=== PATIENT | male | born 1950 | race Caucasian/White ===

== ENCOUNTER 2017-07-08 00:07 | Inpatient (IN) | payer MEDICARE, MEDICAID ==
[~2017-07-08] VITALS: Ht 172.7 cm; Wt 77.0 kg
[~2017-07-08 00:07] MED LIST: CELE-193 PO; CLA10T PO; CLOP75TA35 PO; CYCL-394 PO; ESCI5TAB PO; FENO145T38 PO; GABA-532 PO; HYDR12.522 PO; ONDA4TAB6 PO; POTA10TA19 PO
[2017-07-08] MEDS ORDERED: normal saline 1000ML IV soln IVB ONE (00:20)
[2017-07-08] MEDS ORDERED: morphine 4 MG/ML inj SYRINge IV ONE (00:20)
[2017-07-08] MEDS ORDERED: ondansetron/PF 4mg/2ml inj IV ONE (00:20)
[2017-07-08] MEDS ORDERED: morphine 2 MG/ML inj. syringe IV ONE (00:25)
[2017-07-08 00:37] LABS: BASOPHILS % (AUTO) 0.1 % (0-1); EOSINOPHILS # (AUTO) 0.4 X10'3 (0-0.9); EOSINOPHILS % (AUTO) 2.5 % (0-6); HEMATOCRIT 37.9 % (42.0-52.0); HEMOGLOBIN 13.2 g/dl (14.0-17.9); LYMPHOCYTES # (AUTO) 1.6 X10'3 (1.1-4.8); LYMPHOCYTES % (AUTO) 9.5 % (21-51); MEAN CORPUSCULAR HEMOGLOBIN 31.5 PG (27.0-31.0); MEAN CORPUSCULAR HGB CONC 34.7 % (33.0-36.5); MEAN CORPUSCULAR VOLUME 90.6 FL (78-98); MEAN PLATELET VOLUME 8.7 FL (7.4-10.4); MONOCYTES # (AUTO) 0.2 X10'3 (0-0.9); NEUTROPHILS # (AUTO) 14.5 X10'3 (1.8-7.7); NEUTROPHILS % (AUTO) 86.9 % (42-75); PLATELET COUNT 296 X10'3 (140-440); RED BLOOD COUNT 4.18 X10'6 (4.70-6.10); RED CELL DISTRIBUTION WIDTH 15.3 % (11.5-14.5); WHITE BLOOD COUNT 16.6 X10'3 (4.5-11.0)
[2017-07-08 00:53] LABS: ALANINE AMINOTRANSFERASE 33 U/L (12-78); ALBUMIN 3.7 G/DL (3.4-5.0); ALBUMIN/GLOBULIN RATIO 0.8 (1.1-1.5); ALKALINE PHOSPHATASE 58 IU/L (46-116); ANION GAP 9 (8-16); ASPARTATE AMINO TRANSFERASE 22 U/L (10-37); BILIRUBIN,TOTAL 0.3 MG/DL (0.1-1.0); BLOOD UREA NITROGEN 21 MG/DL (7-18); BUN/CREATININE RATIO 18.1 (5.4-32.0); CALCIUM 9.1 MG/DL (8.5-10.1); CHLORIDE 102 MMOL/L (99-107); CREATININE 1.16 MG/DL (0.60-1.10); GLUCOSE 96 MG/DL (70-104); LIPASE 111 U/L (73-393); POTASSIUM 4.1 MMOL/L (3.5-5.1); SODIUM 140 MMOL/L (135-145); TOTAL CARBON DIOXIDE 29.3 MMOL/L (24-32); TOTAL PROTEIN 8.2 G/DL (6.4-8.2); eGFR 63 ML/MIN
[2017-07-08 01:32] LABS: PARTIAL THROMBOPLASTIN TIME 26 SECONDS (22-32); PROTHROMBIN TIME 10.7 SECONDS (9.0-12.0)
[2017-07-08 01:42] LABS: CLARITY,URINE CLEAR (Clear); COLOR,URINE YELLOW (Yellow); GLUCOSE, URINE NEGATIVE (Neg); KETONES,URINE NEGATIVE (Neg); LEUKOCYTE ESTERASE ,URINE NEGATIVE (Neg); NITRITES, URINE NEGATIVE (Neg); OCCULT BLOOD,URINE TRACE-INTACT (Neg); PROTEIN,URINE NEGATIVE (Neg); UROBILINOGEN,URINE 0.2 E.U/dL (0.2-1.0)
[2017-07-08] MEDS ORDERED: piperacillin/tazo 3.375gm/50ml 50 ML IV ONE (01:45)
[2017-07-08 01:47] LABS: UA COLLECTION TYPE CLN CATCH MIDSTREAM
[2017-07-08 01:48] LABS: BACTERIA,URINE NONE SEEN /HPF (Neg); RBC,URINE 0-2 /HPF (0-2); SQUAMOUS EPITHELIAL CELL,UR FEW /LPF (FEW); WBC,URINE NONE SEEN /HPF (0-4)
[2017-07-08] MEDS ORDERED: CLOP75TA15 PO (02:28)
[2017-07-08] MEDS ORDERED: OXYC-150 PO (02:28)
[2017-07-08] MEDS ORDERED: POTA10TA19 PO (02:28)
[2017-07-08] MEDS ORDERED: FENO145T38 PO (02:28)
[2017-07-08] MEDS ORDERED: MELA3TAB PO (02:28)
[2017-07-08] MEDS ORDERED: ATOR10TA87 PO (02:28)
[2017-07-08] MEDS ORDERED: ONDA4TAB6 PO (02:28)
[2017-07-08] MEDS ORDERED: BACL10TA PO (02:28)
[2017-07-08] MEDS ORDERED: ROPI1TAB2 PO (02:28)
[2017-07-08] MEDS ORDERED: CELE-193 PO (02:28)
[2017-07-08] MEDS ORDERED: LOSA25TA96 PO (02:28)
[2017-07-08] MEDS ORDERED: DOCU-28 PO (02:28)
[2017-07-08] MEDS ORDERED: GABA-532 PO (02:28)
[2017-07-08] MEDS ORDERED: potassium Cl 20 mEq SR tablet PO PRN ×2 (02:45)
[2017-07-08] MEDS ORDERED: magnesium 2GM in 50ml NS 50 ML IV PRN (02:45)
[2017-07-08] MEDS ORDERED: mag hydrox/Alum hydrox/simeth 30ml oral suspension PO PRN (02:45)
[2017-07-08] MEDS ORDERED: acetaminophen 325mg tablet PO PRN (02:45)
[2017-07-08] MEDS ORDERED: magnesium hydroxide 30ml (MOM) UD suspension PO PRN (02:45)
[2017-07-08] MEDS ORDERED: potassium Cl 40MEQ/NS 500ml 500 ML IV PRN ×2 (02:45)
[2017-07-08] MEDS ORDERED: albuterol 2.5 MG/3 ML nebule NEB PRN (02:45)
[2017-07-08] MEDS ORDERED: ipratropium/albuterol 3ml nebule NEB PRN (02:45)
[2017-07-08] MEDS ORDERED: HYDROmorphone inj. 0.5 MG/0.5 ML DISP.SYRIN IV PRN ×2 (02:45)
[2017-07-08] MEDS ORDERED: magnesium 4gm in 100ml NS 100 ML IV PRN (02:45)
[2017-07-08] MEDS: normal saline 1000ml 1,000 ML IV SCH ×2 (02:45→15:54)
[2017-07-08] MEDS ORDERED: magnesium Cl slow-release 64mg tablet PO PRN (02:45)
[2017-07-08] MEDS: metroNIDAZOLE-Flagyl 500mg/NS 100 ML IV SCH ×2 (03:30→08:00)
[2017-07-08] MEDS: piperacillin/tazo 4.5gm/100ml 100 ML IV SCH ×2 (08:00→16:48)
[2017-07-08] MEDS: gabapentin 300mg capsule PO SCH ×3 (08:00→20:02)
[2017-07-08] MEDS: K and/or MAG REPLACEMENT MC SCH (08:00)
[2017-07-08] MEDS: atorvastatin 10mg tablet PO SCH (08:00)
[2017-07-08] MEDS: losartan 25mg tablet PO SCH (08:00)
[2017-07-08] MEDS: potassium chloride 10mEq ER tablet PO SCH (08:00)
[2017-07-08] MEDS: clopidogrel 75mg tablet PO SCH (08:00)
[2017-07-08] MEDS: morphine 2 MG/ML inj. syringe IV PRN ×2 (11:00→14:34)
[2017-07-08] MEDS: ondansetron/PF 4mg/2ml inj IV PRN (14:34)
[2017-07-08] MEDS ORDERED: pantoprazole 40 MG vial IV ONE (16:25)
[2017-07-08] MEDS: lactobacillus rhamnosus 10,000 MMU CELLS/CAPSULE PO SCH (20:00)
[2017-07-08] MEDS: ROPINIRole 1mg tablet PO SCH (20:03)
[2017-07-09 02:00] VITALS: BP 161/92
[2017-07-09] MEDS: normal saline 1000ml 1,000 ML IV SCH (02:18)
[2017-07-09] MEDS: piperacillin/tazo 4.5gm/100ml 100 ML IV SCH ×3 (02:18→17:43)
[2017-07-09] MEDS: morphine 2 MG/ML inj. syringe IV PRN ×4 (02:22→19:58)
[2017-07-09] MEDS: ondansetron/PF 4mg/2ml inj IV PRN (02:40)
[2017-07-09 05:56] LABS: BASOPHILS % (AUTO) 0 % (0-1); EOSINOPHILS % (AUTO) 0 % (0-6); HEMATOCRIT 36.3 % (42.0-52.0); HEMOGLOBIN 12.5 g/dl (14.0-17.9); LYMPHOCYTES # (AUTO) 0.6 X10'3 (1.1-4.8); LYMPHOCYTES % (AUTO) 3.1 % (21-51); MEAN CORPUSCULAR HEMOGLOBIN 31.6 PG (27.0-31.0); MEAN CORPUSCULAR HGB CONC 34.6 % (33.0-36.5); MEAN CORPUSCULAR VOLUME 91.4 FL (78-98); MEAN PLATELET VOLUME 9.1 FL (7.4-10.4); MONOCYTES # (AUTO) 0.6 X10'3 (0-0.9); MONOCYTES % (AUTO) 3.3 % (2-12); NEUTROPHILS # (AUTO) 17.6 X10'3 (1.8-7.7); NEUTROPHILS % (AUTO) 93.6 % (42-75); PLATELET COUNT 249 X10'3 (140-440); RED BLOOD COUNT 3.97 X10'6 (4.70-6.10); RED CELL DISTRIBUTION WIDTH 15.1 % (11.5-14.5); WHITE BLOOD COUNT 18.8 X10'3 (4.5-11.0)
[2017-07-09 06:00] VITALS: BP 128/83
[2017-07-09 06:21] LABS: ALANINE AMINOTRANSFERASE 28 U/L (12-78); ALBUMIN/GLOBULIN RATIO 0.6 (1.1-1.5); ALKALINE PHOSPHATASE 51 IU/L (46-116); ANION GAP 13 (8-16); ASPARTATE AMINO TRANSFERASE 25 U/L (10-37); BILIRUBIN,TOTAL 0.5 MG/DL (0.1-1.0); BLOOD UREA NITROGEN 19 MG/DL (7-18); BUN/CREATININE RATIO 18.8 (5.4-32.0); CALCIUM 8.8 MG/DL (8.5-10.1); CHLORIDE 104 MMOL/L (99-107); CREATININE 1.01 MG/DL (0.60-1.10); GLUCOSE 133 MG/DL (70-104); MAGNESIUM 1.8 MG/DL (1.5-2.4); POTASSIUM 3.5 MMOL/L (3.5-5.1); SODIUM 141 MMOL/L (135-145); TOTAL CARBON DIOXIDE 24.4 MMOL/L (24-32); TOTAL PROTEIN 7.8 G/DL (6.4-8.2); eGFR 73 ML/MIN
[2017-07-09] MEDS: clopidogrel 75mg tablet PO SCH (08:00)
[2017-07-09] MEDS: K and/or MAG REPLACEMENT MC SCH (08:00)
[2017-07-09] MEDS: losartan 25mg tablet PO SCH (08:26)
[2017-07-09] MEDS: lactobacillus rhamnosus 10,000 MMU CELLS/CAPSULE PO SCH ×2 (08:26→19:59)
[2017-07-09] MEDS: atorvastatin 10mg tablet PO SCH (08:26)
[2017-07-09] MEDS: gabapentin 300mg capsule PO SCH ×3 (08:26→19:59)
[2017-07-09] MEDS: potassium chloride 10mEq ER tablet PO SCH (08:27)
[2017-07-09 11:00] VITALS: BP 133/88
[2017-07-09 18:26] VITALS: BP 139/80
[2017-07-09] MEDS: ROPINIRole 1mg tablet PO SCH (19:59)
[2017-07-09 22:10] VITALS: BP 114/64
[2017-07-10] MEDS: piperacillin/tazo 4.5gm/100ml 100 ML IV SCH ×3 (00:02→16:39)
[2017-07-10] MEDS: normal saline 1000ml 1,000 ML IV SCH ×2 (00:05→22:00)
[2017-07-10] MEDS: morphine 2 MG/ML inj. syringe IV PRN ×3 (00:51→12:43)
[2017-07-10 06:00] VITALS: BP 151/88
[2017-07-10 06:03] LABS: BASOPHILS % (AUTO) 0.2 % (0-1); EOSINOPHILS % (AUTO) 0 % (0-6); HEMATOCRIT 33.8 % (42.0-52.0); HEMOGLOBIN 11.9 g/dl (14.0-17.9); LYMPHOCYTES # (AUTO) 0.7 X10'3 (1.1-4.8); LYMPHOCYTES % (AUTO) 4.4 % (21-51); MEAN CORPUSCULAR HEMOGLOBIN 31.3 PG (27.0-31.0); MEAN CORPUSCULAR HGB CONC 35.1 % (33.0-36.5); MEAN CORPUSCULAR VOLUME 89.2 FL (78-98); MEAN PLATELET VOLUME 8.9 FL (7.4-10.4); MONOCYTES # (AUTO) 0.5 X10'3 (0-0.9); MONOCYTES % (AUTO) 3.4 % (2-12); NEUTROPHILS # (AUTO) 14.7 X10'3 (1.8-7.7); PLATELET COUNT 259 X10'3 (140-440); RED BLOOD COUNT 3.78 X10'6 (4.70-6.10); RED CELL DISTRIBUTION WIDTH 14.9 % (11.5-14.5)
[2017-07-10 06:31] LABS: ALANINE AMINOTRANSFERASE 23 U/L (12-78); ALBUMIN 2.5 G/DL (3.4-5.0); ALBUMIN/GLOBULIN RATIO 0.5 (1.1-1.5); ALKALINE PHOSPHATASE 44 IU/L (46-116); ANION GAP 9 (8-16); ASPARTATE AMINO TRANSFERASE 16 U/L (10-37); BILIRUBIN,TOTAL 0.5 MG/DL (0.1-1.0); BLOOD UREA NITROGEN 31 MG/DL (7-18); BUN/CREATININE RATIO 24.8 (5.4-32.0); CALCIUM 8.7 MG/DL (8.5-10.1); CHLORIDE 110 MMOL/L (99-107); CREATININE 1.25 MG/DL (0.60-1.10); GLUCOSE 130 MG/DL (70-104); MAGNESIUM 2.2 MG/DL (1.5-2.4); POTASSIUM 3.6 MMOL/L (3.5-5.1); SODIUM 144 MMOL/L (135-145); TOTAL PROTEIN 7.1 G/DL (6.4-8.2); eGFR 57 ML/MIN
[2017-07-10] MEDS: K and/or MAG REPLACEMENT MC SCH (08:00)
[2017-07-10] MEDS: potassium chloride 10mEq ER tablet PO SCH (08:17)
[2017-07-10] MEDS: gabapentin 300mg capsule PO SCH ×3 (08:17→20:30)
[2017-07-10] MEDS: lactobacillus rhamnosus 10,000 MMU CELLS/CAPSULE PO SCH ×2 (08:17→20:30)
[2017-07-10] MEDS: losartan 25mg tablet PO SCH (08:17)
[2017-07-10] MEDS: clopidogrel 75mg tablet PO SCH (08:17)
[2017-07-10] MEDS: atorvastatin 10mg tablet PO SCH (08:17)
[2017-07-10 10:00] VITALS: BP 164/81
[2017-07-10] MEDS ORDERED: ondansetron/PF 4mg/2ml inj IV PRN (17:15)
[2017-07-10] MEDS: ondansetron/PF 4mg/2ml inj IV PRN (18:56)
[2017-07-10] MEDS: ROPINIRole 1mg tablet PO SCH (20:31)
[2017-07-10] MEDS ORDERED: MORPHINE 2MG in 2ml NS syringe IV PRN (20:35)
[2017-07-10 22:02] VITALS: BP 159/92
[2017-07-11] VITALS (8 sets, daily range): BP systolic 117–166; BP diastolic 59–90
[2017-07-11] MEDS: piperacillin/tazo 4.5gm/100ml 100 ML IV SCH ×2 (00:32→07:17)
[2017-07-11] MEDS: ondansetron/PF 4mg/2ml inj IV PRN ×2 (01:15→07:23)
[2017-07-11 06:48] LABS: BASOPHILS % (AUTO) 0 % (0-1); EOSINOPHILS # (AUTO) 0.1 X10'3 (0-0.9); EOSINOPHILS % (AUTO) 0.7 % (0-6); HEMATOCRIT 38.7 % (42.0-52.0); HEMOGLOBIN 13.2 g/dl (14.0-17.9); LYMPHOCYTES # (AUTO) 0.5 X10'3 (1.1-4.8); LYMPHOCYTES % (AUTO) 3.6 % (21-51); MEAN CORPUSCULAR HEMOGLOBIN 31.1 PG (27.0-31.0); MEAN CORPUSCULAR HGB CONC 34.1 % (33.0-36.5); MEAN CORPUSCULAR VOLUME 91.2 FL (78-98); MEAN PLATELET VOLUME 9.6 FL (7.4-10.4); MONOCYTES # (AUTO) 0.4 X10'3 (0-0.9); MONOCYTES % (AUTO) 2.5 % (2-12); NEUTROPHILS # (AUTO) 13.9 X10'3 (1.8-7.7); NEUTROPHILS % (AUTO) 93.2 % (42-75); PLATELET COUNT 298 X10'3 (140-440); RED BLOOD COUNT 4.25 X10'6 (4.70-6.10); RED CELL DISTRIBUTION WIDTH 15.3 % (11.5-14.5); WHITE BLOOD COUNT 14.9 X10'3 (4.5-11.0)
[2017-07-11 07:11] LABS: ALANINE AMINOTRANSFERASE 22 U/L (12-78); ALBUMIN 2.7 G/DL (3.4-5.0); ALBUMIN/GLOBULIN RATIO 0.5 (1.1-1.5); ALKALINE PHOSPHATASE 53 IU/L (46-116); ANION GAP 14 (8-16); ASPARTATE AMINO TRANSFERASE 22 U/L (10-37); BILIRUBIN,TOTAL 0.3 MG/DL (0.1-1.0); BLOOD UREA NITROGEN 36 MG/DL (7-18); BUN/CREATININE RATIO 29.5 (5.4-32.0); CALCIUM 9.4 MG/DL (8.5-10.1); CHLORIDE 110 MMOL/L (99-107); CREATININE 1.22 MG/DL (0.60-1.10); GLUCOSE 150 MG/DL (70-104); MAGNESIUM 2.3 MG/DL (1.5-2.4); SODIUM 149 MMOL/L (135-145); TOTAL CARBON DIOXIDE 24.7 MMOL/L (24-32); TOTAL PROTEIN 7.8 G/DL (6.4-8.2); eGFR 59 ML/MIN
[2017-07-11 07:16] LABS: POTASSIUM 2.9 MMOL/L (3.5-5.1)
[2017-07-11] MEDS: gabapentin 300mg capsule PO SCH ×3 (07:17→21:00)
[2017-07-11] MEDS: losartan 25mg tablet PO SCH (07:17)
[2017-07-11] MEDS: atorvastatin 10mg tablet PO SCH (07:17)
[2017-07-11] MEDS: clopidogrel 75mg tablet PO SCH (07:17)
[2017-07-11] MEDS: potassium chloride 10mEq ER tablet PO SCH (07:17)
[2017-07-11] MEDS: lactobacillus rhamnosus 10,000 MMU CELLS/CAPSULE PO SCH ×2 (07:17→20:00)
[2017-07-11] MEDS: K and/or MAG REPLACEMENT MC SCH ×2 (08:00→13:20)
[2017-07-11 12:40] LABS: INR 2.1 INR; PROTHROMBIN TIME 21.4 SECONDS (9.0-12.0)
[2017-07-11] MEDS ORDERED: potassium Cl 20 mEq SR tablet PO PRN ×4 (13:20→17:30)
[2017-07-11] MEDS ORDERED: potassium Cl 40MEQ/NS 500ml 500 ML IV PRN ×2 (13:20)
[2017-07-11] MEDS ORDERED: sevoflurane 250ml liquid IH ONE (13:46)
[2017-07-11] MEDS ORDERED: fentaNYL /PF 50mcg/ml 5ml ampule ONE ×2 (13:48→15:20)
[2017-07-11] MEDS ORDERED: propofol inj 20 ML IV ONE (13:48)
[2017-07-11] MEDS ORDERED: rocuronium 10mg/ml inj IV ONE ×2 (13:48→15:19)
[2017-07-11] MEDS ORDERED: ringers solution, lacted 1,000 ML IV SCH (15:13)
[2017-07-11] MEDS ORDERED: ondansetron/PF 4mg/2ml inj IV PRN (15:15)
[2017-07-11] MEDS ORDERED: MORPHINE 2MG in 2ml NS syringe IV PRN (15:15)
[2017-07-11] MEDS ORDERED: metoprolol tartrate 1mg/ml inj IV ONE (15:37)
[2017-07-11] MEDS ORDERED: midazolam 100mg in NS 100ml 100 ML IV PRN (17:01)
[2017-07-11] MEDS ORDERED: fentaNYL/PF 50MCG/1 ML 2ML syringe IV PRN (17:05)
[2017-07-11] MEDS ORDERED: midazolam 2 mg/2 ml injection IV ONE (17:05)
[2017-07-11] MEDS ORDERED: ceFAZolin 1000mg inj IR ONE (17:09)
[2017-07-11] MEDS ORDERED: BUPIVAcaine/PF 2.5 mg/ml (0.25%) 30ml vial IJ ONE (17:09)
[2017-07-11 17:21] LABS: ABG BASE EXCESS -6.5 mmol/L (-2.0-3.0); ABG HCO3 20.5 mmol/L (22.0-26.0); ABG OXYGEN SATURATION 98.5 % (95-98); ABG PCO2 (T) 47.6 mmHg (35.0-48.0); ABG PH (T) 7.254 (7.350-7.450); ABG PO2 (T) 164.4 mmHg (83-108); FCOHb 0.3 % (0.5-1.5); FMetHb 0.3 % (0.3-1.12); FO2Hb 97.9 % (94-100); MINUTE VOLUME 8 L/min; PATIENT TEMPERATURE 37.4; PEEP 5 cm H2O; RESPIRATORY RATE 12 b/min; RESPIRATORY RATE (OBSERVED) 12 b/min; TIDAL VOLUME 500 mL; TOTAL HEMOGLOBIN 13.4 G/dl (14.0-18.0)
[2017-07-11] MEDS ORDERED: ipratropium/albuterol 3ml nebule NEB PRN (17:30)
[2017-07-11] MEDS ORDERED: acetaminophen 325mg tablet PO PRN ×2 (17:30)
[2017-07-11] MEDS ORDERED: potassium Cl 40MEQ/250ML bag 250 ML IV PRN (17:30)
[2017-07-11] MEDS: methylnaltrexone br 12mg/0.6ml inj***SubQ only SQ SCH (18:03)
[2017-07-11] MEDS: normal saline 1000ml 1,000 ML IV SCH (18:30)
[2017-07-11] MEDS: FENTANYL-0.9 % NACL/PF 100 ML IV PRN (19:03)
[2017-07-11] MEDS: ipratropium/albuterol 3ml nebule NEB SCH ×2 (19:05→23:27)
[2017-07-11 19:21] LABS: ABG BASE EXCESS -4.1 mmol/L (-2.0-3.0); ABG HCO3 20.5 mmol/L (22.0-26.0); ABG OXYGEN SATURATION 96.3 % (95-98); ABG PCO2 (T) 37.1 mmHg (35.0-48.0); ABG PH (T) 7.363 (7.350-7.450); ABG PO2 (T) 100.3 mmHg (83-108); FCOHb 0.3 % (0.5-1.5); FMetHb 0.3 % (0.3-1.12); FO2Hb 95.7 % (94-100); MINUTE VOLUME 10 L/min; PATIENT TEMPERATURE 37.8; PEEP 5 cm H2O; RESPIRATORY RATE 20 b/min; RESPIRATORY RATE (OBSERVED) 22 b/min; TIDAL VOLUME 400 mL; TOTAL HEMOGLOBIN 12.7 G/dl (14.0-18.0)
[2017-07-11 19:26] LABS: PO2 MIXED VENOUS (TEMP COR) 41.6 mmHg (35-46)
[2017-07-11] MEDS ORDERED: famotidine 20mg tablet PO SCH (20:00)
[2017-07-11] MEDS ORDERED: pantoprazole 40 MG vial IV SCH (20:00)
[2017-07-11] MEDS ORDERED: docusate sod 100mg capsule PO SCH (20:00)
[2017-07-11] MEDS: heparin, porcine 5000 units/ml vial SQ SCH (20:46)
[2017-07-11] MEDS: piperacillin/tazo 3.375gm/50ml 50 ML IV SCH (20:46)
[2017-07-11] MEDS: fluconazole-Diflucan 200mg/NS 100 ML IV SCH (20:46)
[2017-07-11] MEDS: ROPINIRole 1mg tablet PO SCH (21:00)
[2017-07-12] VITALS (22 sets, daily range): BP systolic 103–199; BP diastolic 53–86
[2017-07-12] MEDS: FENTANYL-0.9 % NACL/PF 100 ML IV PRN (00:36)
[2017-07-12] MEDS: normal saline 1000ml 1,000 ML IV SCH ×2 (01:39→08:52)
[2017-07-12] MEDS: piperacillin/tazo 3.375gm/50ml 50 ML IV SCH ×4 (02:29→19:39)
[2017-07-12] MEDS: ipratropium/albuterol 3ml nebule NEB SCH ×4 (03:24→20:51)
[2017-07-12 03:41] LABS: ABG BASE EXCESS -4.9 mmol/L (-2.0-3.0); ABG HCO3 19.8 mmol/L (22.0-26.0); ABG OXYGEN SATURATION 95.8 % (95-98); ABG PCO2 (T) 36.9 mmHg (35.0-48.0); ABG PH (T) 7.351 (7.350-7.450); ABG PO2 (T) 89.9 mmHg (83-108); FCOHb 0.2 % (0.5-1.5); FMetHb 0.3 % (0.3-1.12); FO2Hb 95.3 % (94-100); MINUTE VOLUME 9 L/min; PATIENT TEMPERATURE 37.7; PEEP 5 cm H2O; RESPIRATORY RATE 20 b/min; RESPIRATORY RATE (OBSERVED) 21 b/min; TIDAL VOLUME 400 mL; TOTAL HEMOGLOBIN 12.2 G/dl (14.0-18.0)
[2017-07-12 04:37] LABS: BASOPHILS % (AUTO) 0.1 % (0-1); EOSINOPHILS # (AUTO) 0.1 X10'3 (0-0.9); EOSINOPHILS % (AUTO) 0.9 % (0-6); HEMATOCRIT 34.4 % (42.0-52.0); HEMOGLOBIN 11.7 g/dl (14.0-17.9); LYMPHOCYTES # (AUTO) 0.8 X10'3 (1.1-4.8); LYMPHOCYTES % (AUTO) 6.4 % (21-51); MEAN CORPUSCULAR HEMOGLOBIN 30.9 PG (27.0-31.0); MEAN CORPUSCULAR HGB CONC 33.9 % (33.0-36.5); MEAN CORPUSCULAR VOLUME 90.9 FL (78-98); MEAN PLATELET VOLUME 9.4 FL (7.4-10.4); MONOCYTES # (AUTO) 0.7 X10'3 (0-0.9); MONOCYTES % (AUTO) 5.2 % (2-12); NEUTROPHILS # (AUTO) 11.6 X10'3 (1.8-7.7); NEUTROPHILS % (AUTO) 87.4 % (42-75); PLATELET COUNT 272 X10'3 (140-440); RED BLOOD COUNT 3.78 X10'6 (4.70-6.10); RED CELL DISTRIBUTION WIDTH 15.4 % (11.5-14.5); WHITE BLOOD COUNT 13.3 X10'3 (4.5-11.0)
[2017-07-12 04:56] LABS: ALANINE AMINOTRANSFERASE 24 U/L (12-78); ALBUMIN 2.2 G/DL (3.4-5.0); ALBUMIN/GLOBULIN RATIO 0.5 (1.1-1.5); ALKALINE PHOSPHATASE 36 IU/L (46-116); ANION GAP 10 (8-16); ASPARTATE AMINO TRANSFERASE 24 U/L (10-37); BILIRUBIN,TOTAL 0.3 MG/DL (0.1-1.0); BLOOD UREA NITROGEN 32 MG/DL (7-18); BUN/CREATININE RATIO 26.9 (5.4-32.0); CALCIUM 7.9 MG/DL (8.5-10.1); CHLORIDE 117 MMOL/L (99-107); CREATININE 1.19 MG/DL (0.60-1.10); GLUCOSE 142 MG/DL (70-104); PHOSPHORUS 2.5 MG/DL (2.3-4.5); POTASSIUM 3.1 MMOL/L (3.5-5.1); PREALBUMIN 11.6 MG/DL (19-36); SODIUM 152 MMOL/L (135-145); TOTAL CARBON DIOXIDE 24.8 MMOL/L (24-32); TOTAL PROTEIN 6.3 G/DL (6.4-8.2); TRIGLYCERIDES 150 MG/DL (20-135); eGFR 61 ML/MIN
[2017-07-12] MEDS: K and/or MAG REPLACEMENT MC SCH (08:00)
[2017-07-12] MEDS: famotidine/PF 10 mg/ml inj IV SCH ×2 (08:00→22:15)
[2017-07-12] MEDS: fluconazole-Diflucan 200mg/NS 100 ML IV SCH (08:52)
[2017-07-12] MEDS: heparin, porcine 5000 units/ml vial SQ SCH ×2 (08:52→19:40)
[2017-07-12] MEDS: potassium chloride 10mEq ER tablet PO SCH (08:52)
[2017-07-12] MEDS ORDERED: naloxone 0.4 mg/ml inj IV PRN (09:35)
[2017-07-12] MEDS ORDERED: racepinephrine 11.25mg/0.5ml nebule NEB PRN (09:35)
[2017-07-12] MEDS ORDERED: CADD PCA waste documentation MC PRN (09:35)
[2017-07-12] MEDS ORDERED: ipratropium/albuterol 3ml nebule NEB PRN (09:35)
[2017-07-12] MEDS: potassium Cl 40MEQ/250ML bag 250 ML IV SCH (09:45)
[2017-07-12] MEDS: sodium chloride 0.45% 1,000 ML IV SCH ×2 (11:17→20:35)
[2017-07-12] MEDS: morphine/NS 5 mg/ml CADD 50 ML IV SCH (11:37)
[2017-07-12] MEDS: hydrALAZINE 20mg/ml inj. IV PRN (17:02)
[2017-07-12] MEDS: potassium Cl 40MEQ/NS 500ml 500 ML IV PRN (17:03)
[2017-07-12] MEDS: losartan 25mg tablet PO SCH (18:04)
[2017-07-12] MEDS: HYDROchlorothiazide 12.5mg capsule PO SCH (18:04)
[2017-07-12] MEDS: mineral oil/petrolatum ophthal oint EACHEYE SCH ×2 (19:55)
[2017-07-13] VITALS (19 sets, daily range): BP systolic 133–186; BP diastolic 61–82
[2017-07-13] MEDS: mineral oil/petrolatum ophthal oint EACHEYE SCH ×8 (02:00→20:00)
[2017-07-13] MEDS: piperacillin/tazo 3.375gm/50ml 50 ML IV SCH ×4 (02:34→20:45)
[2017-07-13 02:50] LABS: BASOPHILS % (AUTO) 0 % (0-1); EOSINOPHILS # (AUTO) 0.2 X10'3 (0-0.9); EOSINOPHILS % (AUTO) 1.4 % (0-6); HEMATOCRIT 31.9 % (42.0-52.0); HEMOGLOBIN 10.8 g/dl (14.0-17.9); LYMPHOCYTES # (AUTO) 0.8 X10'3 (1.1-4.8); LYMPHOCYTES % (AUTO) 6.2 % (21-51); MEAN CORPUSCULAR HEMOGLOBIN 30.8 PG (27.0-31.0); MEAN CORPUSCULAR HGB CONC 33.8 % (33.0-36.5); MEAN PLATELET VOLUME 8.9 FL (7.4-10.4); MONOCYTES # (AUTO) 0.7 X10'3 (0-0.9); MONOCYTES % (AUTO) 5.4 % (2-12); NEUTROPHILS # (AUTO) 11.7 X10'3 (1.8-7.7); PLATELET COUNT 248 X10'3 (140-440); RED BLOOD COUNT 3.51 X10'6 (4.70-6.10); RED CELL DISTRIBUTION WIDTH 15.2 % (11.5-14.5); WHITE BLOOD COUNT 13.4 X10'3 (4.5-11.0)
[2017-07-13] MEDS: ipratropium/albuterol 3ml nebule NEB SCH ×4 (02:55→20:50)
[2017-07-13 03:19] LABS: ALANINE AMINOTRANSFERASE 24 U/L (12-78); ALBUMIN 2.1 G/DL (3.4-5.0); ALBUMIN/GLOBULIN RATIO 0.5 (1.1-1.5); ALKALINE PHOSPHATASE 37 IU/L (46-116); ANION GAP 11 (8-16); ASPARTATE AMINO TRANSFERASE 24 U/L (10-37); BILIRUBIN,TOTAL 0.3 MG/DL (0.1-1.0); BLOOD UREA NITROGEN 19 MG/DL (7-18); BUN/CREATININE RATIO 20.4 (5.4-32.0); CALCIUM 8.1 MG/DL (8.5-10.1); CHLORIDE 119 MMOL/L (99-107); CREATININE 0.93 MG/DL (0.60-1.10); GLUCOSE 122 MG/DL (70-104); MAGNESIUM 2.1 MG/DL (1.5-2.4); PHOSPHORUS 1.5 MG/DL (2.3-4.5); POTASSIUM 3.1 MMOL/L (3.5-5.1); SODIUM 153 MMOL/L (135-145); TOTAL CARBON DIOXIDE 23.5 MMOL/L (24-32); TOTAL PROTEIN 6.1 G/DL (6.4-8.2); eGFR 81 ML/MIN
[2017-07-13] MEDS ORDERED: potassium Cl 40MEQ/250ML bag 250 ML IV ONE (03:49)
[2017-07-13] MEDS: potassium Cl 40MEQ/250ML bag 250 ML IV SCH (04:09)
[2017-07-13] MEDS: sodium chloride 0.45% 1,000 ML IV SCH ×2 (07:07→20:46)
[2017-07-13] MEDS: fluconazole-Diflucan 200mg/NS 100 ML IV SCH (07:42)
[2017-07-13] MEDS: heparin, porcine 5000 units/ml vial SQ SCH ×2 (07:42→20:45)
[2017-07-13] MEDS: potassium chloride 10mEq ER tablet PO SCH (07:43)
[2017-07-13] MEDS: losartan 25mg tablet PO SCH (07:43)
[2017-07-13] MEDS: HYDROchlorothiazide 12.5mg capsule PO SCH (07:43)
[2017-07-13] MEDS: methylnaltrexone br 12mg/0.6ml inj***SubQ only SQ SCH (08:00)
[2017-07-13] MEDS: famotidine/PF 10 mg/ml inj IV SCH (08:00)
[2017-07-13] MEDS: K and/or MAG REPLACEMENT MC SCH (08:51)
[2017-07-13] MEDS: hydrALAZINE 20mg/ml inj. IV PRN (09:17)
[2017-07-13] MEDS: morphine/NS 5 mg/ml CADD 50 ML IV SCH (18:49)
[2017-07-13] MEDS: ondansetron/PF 4mg/2ml inj IV PRN (20:58)
[2017-07-13] MEDS: famotidine 20mg tablet PO SCH (21:13)
[2017-07-14] VITALS: BP 173/84
[2017-07-14] MEDS: morphine/NS 5 mg/ml CADD 50 ML IV SCH ×6 (00:26→23:00)
[2017-07-14] MEDS: piperacillin/tazo 3.375gm/50ml 50 ML IV SCH ×4 (01:43→19:21)
[2017-07-14] MEDS: ipratropium/albuterol 3ml nebule NEB SCH ×4 (02:12→20:07)
[2017-07-14] MEDS: sodium chloride 0.45% 1,000 ML IV SCH ×3 (02:35→22:35)
[2017-07-14] MEDS: ondansetron/PF 4mg/2ml inj IV PRN (05:37)
[2017-07-14 05:54] LABS: MAGNESIUM 1.9 MG/DL (1.5-2.4); PHOSPHORUS 2.4 MG/DL (2.3-4.5)
[2017-07-14] MEDS: K and/or MAG REPLACEMENT MC SCH (07:07)
[2017-07-14] MEDS: HYDROchlorothiazide 12.5mg capsule PO SCH (07:11)
[2017-07-14] MEDS: potassium chloride 10mEq ER tablet PO SCH (07:11)
[2017-07-14] MEDS: famotidine 20mg tablet PO SCH ×2 (07:11→19:21)
[2017-07-14] MEDS: losartan 25mg tablet PO SCH (07:11)
[2017-07-14] MEDS: heparin, porcine 5000 units/ml vial SQ SCH ×2 (07:12→19:21)
[2017-07-14] MEDS: fluconazole-Diflucan 200mg/NS 100 ML IV SCH (09:08)
[2017-07-14 12:00] VITALS: BP 172/84
[2017-07-14 13:06] LABS: BASOPHILS % (AUTO) 0.3 % (0-1); EOSINOPHILS % (AUTO) 0.1 % (0-6); HEMATOCRIT 33.8 % (42.0-52.0); HEMOGLOBIN 11.4 g/dl (14.0-17.9); LYMPHOCYTES # (AUTO) 1.1 X10'3 (1.1-4.8); LYMPHOCYTES % (AUTO) 6.8 % (21-51); MEAN CORPUSCULAR HEMOGLOBIN 30.6 PG (27.0-31.0); MEAN CORPUSCULAR HGB CONC 33.7 % (33.0-36.5); MEAN CORPUSCULAR VOLUME 90.7 FL (78-98); MEAN PLATELET VOLUME 9.1 FL (7.4-10.4); MONOCYTES # (AUTO) 0.6 X10'3 (0-0.9); MONOCYTES % (AUTO) 3.8 % (2-12); NEUTROPHILS # (AUTO) 14.1 X10'3 (1.8-7.7); PLATELET COUNT 318 X10'3 (140-440); RED BLOOD COUNT 3.73 X10'6 (4.70-6.10); RED CELL DISTRIBUTION WIDTH 14.7 % (11.5-14.5); WHITE BLOOD COUNT 15.8 X10'3 (4.5-11.0)
[2017-07-14 13:17] LABS: ALBUMIN 2.1 G/DL (3.4-5.0); ANION GAP 9 (8-16); BLOOD UREA NITROGEN 14 MG/DL (7-18); BUN/CREATININE RATIO 17.1 (5.4-32.0); CALCIUM 8.2 MG/DL (8.5-10.1); CHLORIDE 106 MMOL/L (99-107); CREATININE 0.82 MG/DL (0.60-1.10); GLUCOSE 122 MG/DL (70-104); SODIUM 143 MMOL/L (135-145); TOTAL CARBON DIOXIDE 28.2 MMOL/L (24-32); eGFR > 90 ML/MIN
[2017-07-14 13:24] LABS: POTASSIUM 2.9 MMOL/L (3.5-5.1)
[2017-07-14] MEDS: potassium Cl 40MEQ/NS 500ml 500 ML IV PRN ×2 (13:32→21:42)
[2017-07-14 19:00] VITALS: BP 171/87
[2017-07-15] VITALS: BP 157/81
[2017-07-15] MEDS: morphine/NS 5 mg/ml CADD 50 ML IV SCH ×12 (01:00→23:00)
[2017-07-15] MEDS: piperacillin/tazo 3.375gm/50ml 50 ML IV SCH ×4 (01:30→20:50)
[2017-07-15] MEDS: ipratropium/albuterol 3ml nebule NEB SCH ×4 (02:18→21:31)
[2017-07-15 05:56] LABS: MAGNESIUM 1.6 MG/DL (1.5-2.4); PHOSPHORUS 2.3 MG/DL (2.3-4.5); POTASSIUM 3.2 MMOL/L (3.5-5.1)
[2017-07-15] MEDS: sodium chloride 0.45% 1,000 ML IV SCH ×2 (06:24→20:50)
[2017-07-15 07:00] VITALS: BP 157/83
[2017-07-15] MEDS: methylnaltrexone br 12mg/0.6ml inj***SubQ only SQ SCH ×2 (08:00→13:06)
[2017-07-15] MEDS: potassium chloride 10mEq ER tablet PO SCH ×2 (08:00→08:21)
[2017-07-15] MEDS: K and/or MAG REPLACEMENT MC SCH (08:18)
[2017-07-15] MEDS: famotidine 20mg tablet PO SCH ×2 (08:21→20:50)
[2017-07-15] MEDS: losartan 25mg tablet PO SCH (08:21)
[2017-07-15] MEDS: potassium Cl 40MEQ/NS 500ml 500 ML IV PRN (08:21)
[2017-07-15] MEDS: HYDROchlorothiazide 12.5mg capsule PO SCH (08:21)
[2017-07-15] MEDS: heparin, porcine 5000 units/ml vial SQ SCH ×2 (08:22→20:50)
[2017-07-15] MEDS: fluconazole-Diflucan 200mg/NS 100 ML IV SCH (09:22)
[2017-07-15 11:19] VITALS: BP 145/77
[2017-07-15 12:28] LABS: BASOPHILS # (AUTO) 0.2 X10'3 (0-0.2); EOSINOPHILS # (AUTO) 0.3 X10'3 (0-0.9); HEMOGLOBIN 11.1 g/dl (14.0-17.9); LYMPHOCYTES # (AUTO) 1.2 X10'3 (1.1-4.8); LYMPHOCYTES % (AUTO) 7.3 % (21-51); MEAN CORPUSCULAR HEMOGLOBIN 30.3 PG (27.0-31.0); MEAN CORPUSCULAR HGB CONC 33.8 % (33.0-36.5); MEAN CORPUSCULAR VOLUME 89.6 FL (78-98); MONOCYTES # (AUTO) 0.2 X10'3 (0-0.9); MONOCYTES % (AUTO) 1.4 % (2-12); NEUTROPHILS % (AUTO) 88.3 % (42-75); PLATELET COUNT 334 X10'3 (140-440); RED BLOOD COUNT 3.68 X10'6 (4.70-6.10); RED CELL DISTRIBUTION WIDTH 14.7 % (11.5-14.5)
[2017-07-15 12:34] LABS: ANION GAP 7 (8-16); BLOOD UREA NITROGEN 11 MG/DL (7-18); BUN/CREATININE RATIO 15.1 (5.4-32.0); CALCIUM 8.1 MG/DL (8.5-10.1); CHLORIDE 103 MMOL/L (99-107); CREATININE 0.73 MG/DL (0.60-1.10); GLUCOSE 124 MG/DL (70-104); POTASSIUM 3.7 MMOL/L (3.5-5.1); SODIUM 138 MMOL/L (135-145); eGFR > 90 ML/MIN
[2017-07-15 19:00] VITALS: BP 162/85
[2017-07-15] MEDS: ondansetron/PF 4mg/2ml inj IV PRN (23:20)
[2017-07-16] VITALS: BP 151/90
[2017-07-16] MEDS: sodium chloride 0.45% 1,000 ML IV SCH ×2 (00:30→11:51)
[2017-07-16] MEDS: morphine/NS 5 mg/ml CADD 50 ML IV SCH ×12 (01:00→23:00)
[2017-07-16] MEDS: piperacillin/tazo 3.375gm/50ml 50 ML IV SCH ×4 (02:01→20:55)
[2017-07-16] MEDS: ipratropium/albuterol 3ml nebule NEB SCH ×2 (03:29→20:53)
[2017-07-16 07:17] VITALS: BP 164/89
[2017-07-16] MEDS: K and/or MAG REPLACEMENT MC SCH (08:00)
[2017-07-16] MEDS: heparin, porcine 5000 units/ml vial SQ SCH ×2 (08:45→20:55)
[2017-07-16] MEDS: famotidine 20mg tablet PO SCH ×2 (08:46→20:57)
[2017-07-16] MEDS: potassium chloride 10mEq ER tablet PO SCH (08:46)
[2017-07-16] MEDS: HYDROchlorothiazide 12.5mg capsule PO SCH (08:46)
[2017-07-16] MEDS: losartan 25mg tablet PO SCH (08:46)
[2017-07-16] MEDS: fluconazole 100mg tablet PO SCH (08:46)
[2017-07-16 11:00] VITALS: BP 144/93
[2017-07-16 12:46] LABS: BASOPHILS % (AUTO) 0 % (0-1); EOSINOPHILS # (AUTO) 0.3 X10'3 (0-0.9); EOSINOPHILS % (AUTO) 1.6 % (0-6); HEMATOCRIT 37.6 % (42.0-52.0); HEMOGLOBIN 12.6 g/dl (14.0-17.9); LYMPHOCYTES # (AUTO) 3.7 X10'3 (1.1-4.8); LYMPHOCYTES % (AUTO) 19.8 % (21-51); MEAN CORPUSCULAR HEMOGLOBIN 30.1 PG (27.0-31.0); MEAN CORPUSCULAR HGB CONC 33.6 % (33.0-36.5); MEAN CORPUSCULAR VOLUME 89.7 FL (78-98); MONOCYTES # (AUTO) 0.7 X10'3 (0-0.9); MONOCYTES % (AUTO) 3.8 % (2-12); NEUTROPHILS # (AUTO) 14.2 X10'3 (1.8-7.7); NEUTROPHILS % (AUTO) 74.8 % (42-75); PLATELET COUNT 366 X10'3 (140-440); RED BLOOD COUNT 4.19 X10'6 (4.70-6.10); RED CELL DISTRIBUTION WIDTH 15.1 % (11.5-14.5); WHITE BLOOD COUNT 18.9 X10'3 (4.5-11.0)
[2017-07-16 12:55] LABS: ALBUMIN 2.1 G/DL (3.4-5.0); ANION GAP 10 (8-16); BLOOD UREA NITROGEN 11 MG/DL (7-18); BUN/CREATININE RATIO 13.4 (5.4-32.0); CALCIUM 8.3 MG/DL (8.5-10.1); CHLORIDE 99 MMOL/L (99-107); CREATININE 0.82 MG/DL (0.60-1.10); GLUCOSE 93 MG/DL (70-104); POTASSIUM 3.4 MMOL/L (3.5-5.1); SODIUM 136 MMOL/L (135-145); TOTAL CARBON DIOXIDE 27.3 MMOL/L (24-32); eGFR > 90 ML/MIN
[2017-07-16 13:33] LABS: PLATELET ESTIMATE NORMAL; TOTAL CELLS COUNTED 100
[2017-07-16 13:34] LABS: LARGE PLATELETS FEW; POLYCHROMASIA FEW
[2017-07-16 19:00] VITALS: BP 150/93
[2017-07-17] VITALS: BP 137/80
[2017-07-17] MEDS: morphine/NS 5 mg/ml CADD 50 ML IV SCH ×12 (01:00→23:00)
[2017-07-17] MEDS: piperacillin/tazo 3.375gm/50ml 50 ML IV SCH ×4 (02:28→20:15)
[2017-07-17] MEDS: ipratropium/albuterol 3ml nebule NEB SCH ×2 (03:17→21:05)
[2017-07-17 08:00] VITALS: BP 150/97
[2017-07-17] MEDS: methylnaltrexone br 12mg/0.6ml inj***SubQ only SQ SCH (08:00)
[2017-07-17] MEDS: potassium chloride 10mEq ER tablet PO SCH (08:00)
[2017-07-17] MEDS: losartan 25mg tablet PO SCH (08:00)
[2017-07-17] MEDS: famotidine 20mg tablet PO SCH ×2 (08:00→20:15)
[2017-07-17] MEDS: fluconazole 100mg tablet PO SCH (08:00)
[2017-07-17] MEDS: K and/or MAG REPLACEMENT MC SCH (08:00)
[2017-07-17] MEDS: HYDROchlorothiazide 12.5mg capsule PO SCH (08:00)
[2017-07-17] MEDS: heparin, porcine 5000 units/ml vial SQ SCH ×2 (09:45→20:00)
[2017-07-17] MEDS: diatr meglu/diatrizoate 30ml oral sol.-(3 dose) bottle PO SCH ×3 (09:45→15:45)
[2017-07-17 11:00] VITALS: BP 125/81
[2017-07-17 12:19] LABS: BASOPHILS # (AUTO) 0.1 X10'3 (0-0.2); BASOPHILS % (AUTO) 0.4 % (0-1); EOSINOPHILS # (AUTO) 0.2 X10'3 (0-0.9); HEMATOCRIT 37.2 % (42.0-52.0); HEMOGLOBIN 12.6 g/dl (14.0-17.9); LYMPHOCYTES # (AUTO) 0.8 X10'3 (1.1-4.8); LYMPHOCYTES % (AUTO) 4.5 % (21-51); MEAN CORPUSCULAR HEMOGLOBIN 30.5 PG (27.0-31.0); MEAN CORPUSCULAR HGB CONC 33.9 % (33.0-36.5); MEAN CORPUSCULAR VOLUME 89.8 FL (78-98); MONOCYTES # (AUTO) 0.4 X10'3 (0-0.9); NEUTROPHILS # (AUTO) 17.4 X10'3 (1.8-7.7); NEUTROPHILS % (AUTO) 92.1 % (42-75); PLATELET COUNT 462 X10'3 (140-440); RED BLOOD COUNT 4.14 X10'6 (4.70-6.10); RED CELL DISTRIBUTION WIDTH 15.1 % (11.5-14.5); WHITE BLOOD COUNT 18.9 X10'3 (4.5-11.0)
[2017-07-17 12:34] LABS: ALANINE AMINOTRANSFERASE 83 U/L (12-78); ALBUMIN 2.2 G/DL (3.4-5.0); ALBUMIN/GLOBULIN RATIO 0.5 (1.1-1.5); ALKALINE PHOSPHATASE 66 IU/L (46-116); ANION GAP 9 (8-16); ASPARTATE AMINO TRANSFERASE 63 U/L (10-37); BILIRUBIN,TOTAL 0.4 MG/DL (0.1-1.0); BLOOD UREA NITROGEN 15 MG/DL (7-18); BUN/CREATININE RATIO 16.7 (5.4-32.0); CALCIUM 8.6 MG/DL (8.5-10.1); CHLORIDE 96 MMOL/L (99-107); GLUCOSE 122 MG/DL (70-104); POTASSIUM 3.1 MMOL/L (3.5-5.1); SODIUM 134 MMOL/L (135-145); TOTAL CARBON DIOXIDE 28.6 MMOL/L (24-32); TOTAL PROTEIN 6.6 G/DL (6.4-8.2); eGFR 84 ML/MIN
[2017-07-17] MEDS: ondansetron/PF 4mg/2ml inj IV PRN (13:46)
[2017-07-17] MEDS: sodium chloride 0.45% 1,000 ML IV SCH (14:37)
[2017-07-17] MEDS ORDERED: iohexol 300mg/ml 100ml inj. ONE (15:44)
[2017-07-17] MEDS: potassium Cl 40MEQ/NS 500ml 500 ML IV PRN (17:05)
[2017-07-17 18:30] VITALS: BP 139/72
[2017-07-18] VITALS: BP 121/70
[2017-07-18] MEDS: morphine/NS 5 mg/ml CADD 50 ML IV SCH ×12 (01:00→23:00)
[2017-07-18] MEDS: sodium chloride 0.45% 1,000 ML IV SCH ×2 (01:49→15:09)
[2017-07-18] MEDS: piperacillin/tazo 3.375gm/50ml 50 ML IV SCH ×4 (02:27→19:57)
[2017-07-18] MEDS: ipratropium/albuterol 3ml nebule NEB SCH ×2 (02:59→20:35)
[2017-07-18] MEDS: K and/or MAG REPLACEMENT MC SCH (08:00)
[2017-07-18 08:03] VITALS: BP 131/77
[2017-07-18] MEDS: losartan 25mg tablet PO SCH (08:27)
[2017-07-18] MEDS: fluconazole 100mg tablet PO SCH (08:28)
[2017-07-18] MEDS: potassium chloride 10mEq ER tablet PO SCH (08:28)
[2017-07-18] MEDS: famotidine 20mg tablet PO SCH ×2 (08:28→19:57)
[2017-07-18] MEDS: HYDROchlorothiazide 12.5mg capsule PO SCH (08:28)
[2017-07-18] MEDS: heparin, porcine 5000 units/ml vial SQ SCH (08:28)
[2017-07-18] MEDS ORDERED: midazolam 2 mg/2 ml injection IV PRN (09:05)
[2017-07-18 11:03] VITALS: BP 145/77
[2017-07-18 12:41] LABS: BASOPHILS % (AUTO) 0.3 % (0-1); EOSINOPHILS # (AUTO) 0.3 X10'3 (0-0.9); EOSINOPHILS % (AUTO) 1.9 % (0-6); HEMATOCRIT 33.9 % (42.0-52.0); HEMOGLOBIN 11.3 g/dl (14.0-17.9); LYMPHOCYTES # (AUTO) 1.2 X10'3 (1.1-4.8); LYMPHOCYTES % (AUTO) 8.3 % (21-51); MEAN CORPUSCULAR HGB CONC 33.2 % (33.0-36.5); MEAN CORPUSCULAR VOLUME 90.3 FL (78-98); MONOCYTES # (AUTO) 0.9 X10'3 (0-0.9); MONOCYTES % (AUTO) 5.9 % (2-12); NEUTROPHILS # (AUTO) 12.4 X10'3 (1.8-7.7); NEUTROPHILS % (AUTO) 83.6 % (42-75); PLATELET COUNT 455 X10'3 (140-440); RED BLOOD COUNT 3.75 X10'6 (4.70-6.10); RED CELL DISTRIBUTION WIDTH 14.8 % (11.5-14.5); WHITE BLOOD COUNT 14.9 X10'3 (4.5-11.0)
[2017-07-18 12:56] LABS: ALANINE AMINOTRANSFERASE 104 U/L (12-78); ALBUMIN 2.2 G/DL (3.4-5.0); ALBUMIN/GLOBULIN RATIO 0.5 (1.1-1.5); ALKALINE PHOSPHATASE 67 IU/L (46-116); ANION GAP 10 (8-16); ASPARTATE AMINO TRANSFERASE 82 U/L (10-37); BILIRUBIN,TOTAL 0.5 MG/DL (0.1-1.0); BLOOD UREA NITROGEN 14 MG/DL (7-18); BUN/CREATININE RATIO 15.7 (5.4-32.0); CALCIUM 8.3 MG/DL (8.5-10.1); CHLORIDE 99 MMOL/L (99-107); CREATININE 0.89 MG/DL (0.60-1.10); GLUCOSE 92 MG/DL (70-104); POTASSIUM 3.5 MMOL/L (3.5-5.1); SODIUM 134 MMOL/L (135-145); TOTAL CARBON DIOXIDE 25.3 MMOL/L (24-32); TOTAL PROTEIN 6.4 G/DL (6.4-8.2); eGFR 85 ML/MIN
[2017-07-18 19:10] VITALS: BP 147/77
[2017-07-19] VITALS: BP 131/71
[2017-07-19] MEDS: morphine/NS 5 mg/ml CADD 50 ML IV SCH ×12 (01:00→23:00)
[2017-07-19] MEDS: piperacillin/tazo 3.375gm/50ml 50 ML IV SCH ×4 (02:04→19:55)
[2017-07-19] MEDS: ipratropium/albuterol 3ml nebule NEB SCH ×4 (03:27→20:53)
[2017-07-19] MEDS: sodium chloride 0.45% 1,000 ML IV SCH ×2 (04:00→17:10)
[2017-07-19 07:00] VITALS: BP 141/87
[2017-07-19] MEDS: potassium chloride 10mEq ER tablet PO SCH (07:48)
[2017-07-19] MEDS: fluconazole 100mg tablet PO SCH (07:48)
[2017-07-19] MEDS: losartan 25mg tablet PO SCH (07:48)
[2017-07-19] MEDS: HYDROchlorothiazide 12.5mg capsule PO SCH (07:49)
[2017-07-19] MEDS: methylnaltrexone br 12mg/0.6ml inj***SubQ only SQ SCH (07:49)
[2017-07-19] MEDS: famotidine 20mg tablet PO SCH ×2 (07:49→19:49)
[2017-07-19] MEDS: K and/or MAG REPLACEMENT MC SCH (08:00)
[2017-07-19 08:50] LABS: BASOPHILS % (AUTO) 0.1 % (0-1); EOSINOPHILS # (AUTO) 0.3 X10'3 (0-0.9); EOSINOPHILS % (AUTO) 1.9 % (0-6); HEMATOCRIT 34.4 % (42.0-52.0); HEMOGLOBIN 11.6 g/dl (14.0-17.9); LYMPHOCYTES # (AUTO) 0.9 X10'3 (1.1-4.8); LYMPHOCYTES % (AUTO) 6.9 % (21-51); MEAN CORPUSCULAR HEMOGLOBIN 30.4 PG (27.0-31.0); MEAN CORPUSCULAR HGB CONC 33.8 % (33.0-36.5); MEAN CORPUSCULAR VOLUME 89.8 FL (78-98); MONOCYTES # (AUTO) 0.8 X10'3 (0-0.9); MONOCYTES % (AUTO) 5.8 % (2-12); NEUTROPHILS # (AUTO) 11.6 X10'3 (1.8-7.7); NEUTROPHILS % (AUTO) 85.3 % (42-75); PLATELET COUNT 514 X10'3 (140-440); RED BLOOD COUNT 3.83 X10'6 (4.70-6.10); RED CELL DISTRIBUTION WIDTH 14.8 % (11.5-14.5); WHITE BLOOD COUNT 13.6 X10'3 (4.5-11.0)
[2017-07-19 09:04] LABS: ALANINE AMINOTRANSFERASE 133 U/L (12-78); ALBUMIN 2.2 G/DL (3.4-5.0); ALBUMIN/GLOBULIN RATIO 0.5 (1.1-1.5); ALKALINE PHOSPHATASE 73 IU/L (46-116); ANION GAP 12 (8-16); ASPARTATE AMINO TRANSFERASE 95 U/L (10-37); BILIRUBIN,TOTAL 0.4 MG/DL (0.1-1.0); BLOOD UREA NITROGEN 13 MG/DL (7-18); BUN/CREATININE RATIO 15.1 (5.4-32.0); CALCIUM 8.2 MG/DL (8.5-10.1); CHLORIDE 98 MMOL/L (99-107); CREATININE 0.86 MG/DL (0.60-1.10); GLUCOSE 81 MG/DL (70-104); POTASSIUM 3.3 MMOL/L (3.5-5.1); SODIUM 135 MMOL/L (135-145); TOTAL CARBON DIOXIDE 24.8 MMOL/L (24-32); TOTAL PROTEIN 6.5 G/DL (6.4-8.2); eGFR 88 ML/MIN
[2017-07-19 09:13] LABS: INR 4.6 INR
[2017-07-19 11:30] VITALS: BP 151/80
[2017-07-19 11:36] LABS: PROTHROMBIN TIME 45.3 SECONDS (9.0-12.0)
[2017-07-19 11:45] LABS: INR 4.6 INR
[2017-07-19] MEDS ORDERED: phytonadione inj. 10 MG in normal saline 100ml IV soln 99 ML IV ONE (11:55)
[2017-07-19] MEDS ORDERED: phytonadione 10 MG/1 ML amp PO ONE (12:05)
[2017-07-19 12:53] LABS: BASOPHILS # (AUTO) 0.1 X10'3 (0-0.2); BASOPHILS % (AUTO) 0.7 % (0-1); EOSINOPHILS # (AUTO) 0.1 X10'3 (0-0.9); EOSINOPHILS % (AUTO) 0.9 % (0-6); HEMATOCRIT 34.9 % (42.0-52.0); HEMOGLOBIN 11.6 g/dl (14.0-17.9); LYMPHOCYTES % (AUTO) 7.4 % (21-51); MEAN CORPUSCULAR HEMOGLOBIN 29.8 PG (27.0-31.0); MEAN CORPUSCULAR HGB CONC 33.2 % (33.0-36.5); MEAN CORPUSCULAR VOLUME 89.9 FL (78-98); MEAN PLATELET VOLUME 8.9 FL (7.4-10.4); MONOCYTES # (AUTO) 0.7 X10'3 (0-0.9); MONOCYTES % (AUTO) 4.9 % (2-12); NEUTROPHILS % (AUTO) 86.1 % (42-75); PLATELET COUNT 498 X10'3 (140-440); RED BLOOD COUNT 3.88 X10'6 (4.70-6.10); RED CELL DISTRIBUTION WIDTH 15.1 % (11.5-14.5); WHITE BLOOD COUNT 13.9 X10'3 (4.5-11.0)
[2017-07-19 13:03] LABS: ALBUMIN 2.2 G/DL (3.4-5.0); ANION GAP 14 (8-16); BLOOD UREA NITROGEN 12 MG/DL (7-18); BUN/CREATININE RATIO 13.5 (5.4-32.0); CALCIUM 8.1 MG/DL (8.5-10.1); CHLORIDE 97 MMOL/L (99-107); CREATININE 0.89 MG/DL (0.60-1.10); GLUCOSE 80 MG/DL (70-104); POTASSIUM 3.6 MMOL/L (3.5-5.1); SODIUM 134 MMOL/L (135-145); TOTAL CARBON DIOXIDE 23.3 MMOL/L (24-32); eGFR 85 ML/MIN
[2017-07-19 13:17] LABS: PARTIAL THROMBOPLASTIN TIME 48 SECONDS (22-32)
[2017-07-19 20:00] VITALS: BP 174/83
[2017-07-19 21:24] VITALS: BP 157/86
[2017-07-19 23:30] VITALS: BP 137/79
[2017-07-20] MEDS: morphine/NS 5 mg/ml CADD 50 ML IV SCH ×12 (01:00→23:00)
[2017-07-20] MEDS: piperacillin/tazo 3.375gm/50ml 50 ML IV SCH ×4 (01:50→20:04)
[2017-07-20] MEDS: ipratropium/albuterol 3ml nebule NEB SCH ×2 (03:11→09:05)
[2017-07-20] MEDS: sodium chloride 0.45% 1,000 ML IV SCH ×2 (05:46→20:04)
[2017-07-20 06:18] LABS: BASOPHILS # (AUTO) 0.1 X10'3 (0-0.2); BASOPHILS % (AUTO) 0.5 % (0-1); EOSINOPHILS # (AUTO) 0.3 X10'3 (0-0.9); HEMATOCRIT 33.4 % (42.0-52.0); HEMOGLOBIN 11.4 g/dl (14.0-17.9); LYMPHOCYTES % (AUTO) 6.9 % (21-51); MEAN CORPUSCULAR HEMOGLOBIN 30.5 PG (27.0-31.0); MEAN CORPUSCULAR HGB CONC 34.2 % (33.0-36.5); MEAN CORPUSCULAR VOLUME 89.4 FL (78-98); MEAN PLATELET VOLUME 9.1 FL (7.4-10.4); MONOCYTES # (AUTO) 0.9 X10'3 (0-0.9); MONOCYTES % (AUTO) 6.7 % (2-12); NEUTROPHILS # (AUTO) 11.8 X10'3 (1.8-7.7); NEUTROPHILS % (AUTO) 83.9 % (42-75); PLATELET COUNT 514 X10'3 (140-440); RED BLOOD COUNT 3.74 X10'6 (4.70-6.10); RED CELL DISTRIBUTION WIDTH 14.8 % (11.5-14.5); WHITE BLOOD COUNT 14.1 X10'3 (4.5-11.0)
[2017-07-20 07:00] VITALS: BP 146/81
[2017-07-20 07:09] LABS: INR 1.2 INR; PROTHROMBIN TIME 12.1 SECONDS (9.0-12.0)
[2017-07-20] MEDS: HYDROchlorothiazide 12.5mg capsule PO SCH (07:10)
[2017-07-20] MEDS: famotidine 20mg tablet PO SCH ×2 (07:10→20:04)
[2017-07-20] MEDS: losartan 25mg tablet PO SCH (07:10)
[2017-07-20] MEDS: potassium chloride 10mEq ER tablet PO SCH (07:11)
[2017-07-20] MEDS: fluconazole 100mg tablet PO SCH (07:11)
[2017-07-20] MEDS: K and/or MAG REPLACEMENT MC SCH (08:00)
[2017-07-20 08:49] LABS: BASOPHILS # (AUTO) 0.1 X10'3 (0-0.2); BASOPHILS % (AUTO) 0.8 % (0-1); EOSINOPHILS # (AUTO) 0.3 X10'3 (0-0.9); EOSINOPHILS % (AUTO) 1.9 % (0-6); HEMATOCRIT 34.5 % (42.0-52.0); HEMOGLOBIN 11.8 g/dl (14.0-17.9); LYMPHOCYTES # (AUTO) 0.9 X10'3 (1.1-4.8); LYMPHOCYTES % (AUTO) 6.3 % (21-51); MEAN CORPUSCULAR HEMOGLOBIN 30.4 PG (27.0-31.0); MEAN CORPUSCULAR HGB CONC 34.2 % (33.0-36.5); MEAN CORPUSCULAR VOLUME 88.8 FL (78-98); MEAN PLATELET VOLUME 8.6 FL (7.4-10.4); MONOCYTES # (AUTO) 0.8 X10'3 (0-0.9); MONOCYTES % (AUTO) 5.4 % (2-12); NEUTROPHILS % (AUTO) 85.6 % (42-75); PLATELET COUNT 525 X10'3 (140-440); RED BLOOD COUNT 3.88 X10'6 (4.70-6.10); RED CELL DISTRIBUTION WIDTH 15.1 % (11.5-14.5)
[2017-07-20 09:02] LABS: ALANINE AMINOTRANSFERASE 124 U/L (12-78); ALBUMIN 2.3 G/DL (3.4-5.0); ALBUMIN/GLOBULIN RATIO 0.5 (1.1-1.5); ALKALINE PHOSPHATASE 74 IU/L (46-116); ANION GAP 11 (8-16); ASPARTATE AMINO TRANSFERASE 67 U/L (10-37); BILIRUBIN,TOTAL 0.6 MG/DL (0.1-1.0); BLOOD UREA NITROGEN 10 MG/DL (7-18); BUN/CREATININE RATIO 11.4 (5.4-32.0); CALCIUM 8.3 MG/DL (8.5-10.1); CHLORIDE 96 MMOL/L (99-107); CREATININE 0.88 MG/DL (0.60-1.10); POTASSIUM 3.5 MMOL/L (3.5-5.1); SODIUM 134 MMOL/L (135-145); TOTAL CARBON DIOXIDE 27.5 MMOL/L (24-32); TOTAL PROTEIN 6.7 G/DL (6.4-8.2); eGFR 86 ML/MIN
[2017-07-20 09:05] LABS: GLUCOSE 108 MG/DL (70-104)
[2017-07-20] MEDS ORDERED: ipratropium/albuterol 3ml nebule NEB PRN (10:50)
[2017-07-20 11:00] VITALS: BP 151/83
[2017-07-20 11:13] LABS: HBSAG SCREEN Negative (Negative); HEP A AB, IGM Negative (Negative); HEP B CORE AB, IGM Negative (Negative); HEPATITIS C ANTIBODY 0.1 s/co ratio (0.0-0.9)
[2017-07-20 12:49] LABS: ALBUMIN 2.4 G/DL (3.4-5.0); ANION GAP 9 (8-16); BLOOD UREA NITROGEN 9 MG/DL (7-18); CALCIUM 8.5 MG/DL (8.5-10.1); CHLORIDE 97 MMOL/L (99-107); CREATININE 0.82 MG/DL (0.60-1.10); GLUCOSE 101 MG/DL (70-104); POTASSIUM 3.5 MMOL/L (3.5-5.1); SODIUM 134 MMOL/L (135-145); TOTAL CARBON DIOXIDE 27.7 MMOL/L (24-32); eGFR > 90 ML/MIN
[2017-07-20 19:00] VITALS: BP 150/87
[2017-07-20] MEDS: fenofibrate 145mg tablet PO SCH (20:04)
[2017-07-20] MEDS: gabapentin 300mg capsule PO SCH (20:57)
[2017-07-20] MEDS: diatr meglu/diatrizoate 30ml oral sol.-(3 dose) bottle PO SCH (20:57)
[2017-07-21] VITALS (12 sets, daily range): BP systolic 115–149; BP diastolic 70–81
[2017-07-21] MEDS: morphine/NS 5 mg/ml CADD 50 ML IV SCH ×12 (01:00→23:00)
[2017-07-21] MEDS: piperacillin/tazo 3.375gm/50ml 50 ML IV SCH ×4 (02:22→19:48)
[2017-07-21 05:32] LABS: BASOPHILS # (AUTO) 0.1 X10'3 (0-0.2); BASOPHILS % (AUTO) 0.4 % (0-1); EOSINOPHILS # (AUTO) 0.2 X10'3 (0-0.9); EOSINOPHILS % (AUTO) 1.8 % (0-6); HEMATOCRIT 34.4 % (42.0-52.0); HEMOGLOBIN 11.8 g/dl (14.0-17.9); LYMPHOCYTES # (AUTO) 1.2 X10'3 (1.1-4.8); LYMPHOCYTES % (AUTO) 8.8 % (21-51); MEAN CORPUSCULAR HEMOGLOBIN 30.5 PG (27.0-31.0); MEAN CORPUSCULAR HGB CONC 34.3 % (33.0-36.5); MEAN CORPUSCULAR VOLUME 88.9 FL (78-98); MEAN PLATELET VOLUME 8.6 FL (7.4-10.4); MONOCYTES # (AUTO) 0.8 X10'3 (0-0.9); MONOCYTES % (AUTO) 6.3 % (2-12); NEUTROPHILS % (AUTO) 82.7 % (42-75); PLATELET COUNT 584 X10'3 (140-440); RED BLOOD COUNT 3.87 X10'6 (4.70-6.10); RED CELL DISTRIBUTION WIDTH 14.7 % (11.5-14.5); WHITE BLOOD COUNT 13.3 X10'3 (4.5-11.0)
[2017-07-21] MEDS: diatr meglu/diatrizoate 30ml oral sol.-(3 dose) bottle PO SCH ×2 (07:26→11:00)
[2017-07-21] MEDS: loratadine 10mg tablet PO SCH (07:26)
[2017-07-21] MEDS: gabapentin 300mg capsule PO SCH ×3 (07:27→21:03)
[2017-07-21] MEDS: HYDROchlorothiazide 12.5mg capsule PO SCH (07:27)
[2017-07-21] MEDS: famotidine 20mg tablet PO SCH ×2 (07:27→19:48)
[2017-07-21] MEDS: CITALOpram 10mg tablet PO SCH (07:27)
[2017-07-21] MEDS: cyclobenzaprine 10mg tablet PO SCH (07:27)
[2017-07-21] MEDS: potassium chloride 10mEq ER tablet PO SCH (07:27)
[2017-07-21] MEDS: losartan 25mg tablet PO SCH (07:27)
[2017-07-21] MEDS: fluconazole 100mg tablet PO SCH (07:27)
[2017-07-21] MEDS: K and/or MAG REPLACEMENT MC SCH (07:28)
[2017-07-21] MEDS: methylnaltrexone br 12mg/0.6ml inj***SubQ only SQ SCH (07:28)
[2017-07-21] MEDS ORDERED: ESCITALOPRAM OXALATE 5 MG PO SCH (08:00)
[2017-07-21] MEDS: sodium chloride 0.45% 1,000 ML IV SCH ×2 (09:49→11:50)
[2017-07-21] MEDS ORDERED: iohexol 300mg/ml 100ml inj. ONE (10:17)
[2017-07-21] MEDS: fenofibrate 145mg tablet PO SCH ×2 (11:44→19:48)
[2017-07-21 12:55] LABS: ALBUMIN 2.4 G/DL (3.4-5.0); ANION GAP 10 (8-16); BLOOD UREA NITROGEN 11 MG/DL (7-18); BUN/CREATININE RATIO 12.4 (5.4-32.0); CALCIUM 8.5 MG/DL (8.5-10.1); CHLORIDE 96 MMOL/L (99-107); CREATININE 0.89 MG/DL (0.60-1.10); GLUCOSE 108 MG/DL (70-104); POTASSIUM 3.7 MMOL/L (3.5-5.1); SODIUM 133 MMOL/L (135-145); TOTAL CARBON DIOXIDE 27.5 MMOL/L (24-32); eGFR 85 ML/MIN
[2017-07-21] MEDS ORDERED: fentaNYL/PF 50MCG/1 ML 2ML syringe IV PRN (13:25)
[2017-07-21] MEDS ORDERED: midazolam 2 mg/2 ml injection IV PRN (13:25)
[2017-07-21] MEDS ORDERED: LIDOcaine 1%/PF (10mg/ml) 5ml vial SQ ONE (13:25)
[2017-07-21] MEDS ORDERED: LIDOcaine 1%/PF (10mg/ml) 5ml vial ONE (13:37)
[2017-07-21 14:02] LABS: INR 1.1 INR; PROTHROMBIN TIME 11.4 SECONDS (9.0-12.0)
[2017-07-21] MEDS ORDERED: fentaNYL/PF 50MCG/1 ML 2ML syringe ONE (14:07)
[2017-07-21] MEDS ORDERED: heparin, porcine 5000 units/ml vial SQ SCH (20:00)
[2017-07-22] VITALS: BP 123/67
[2017-07-22] MEDS: morphine/NS 5 mg/ml CADD 50 ML IV SCH ×11 (01:00→22:52)
[2017-07-22] MEDS: sodium chloride 0.45% 1,000 ML IV SCH (01:55)
[2017-07-22] MEDS: piperacillin/tazo 3.375gm/50ml 50 ML IV SCH ×4 (01:57→19:37)
[2017-07-22 05:36] LABS: BASOPHILS # (AUTO) 0.1 X10'3 (0-0.2); BASOPHILS % (AUTO) 0.8 % (0-1); EOSINOPHILS # (AUTO) 0.3 X10'3 (0-0.9); EOSINOPHILS % (AUTO) 2.6 % (0-6); HEMOGLOBIN 11.1 g/dl (14.0-17.9); LYMPHOCYTES # (AUTO) 1.4 X10'3 (1.1-4.8); LYMPHOCYTES % (AUTO) 12.7 % (21-51); MEAN CORPUSCULAR HEMOGLOBIN 30.4 PG (27.0-31.0); MEAN CORPUSCULAR HGB CONC 33.6 % (33.0-36.5); MEAN CORPUSCULAR VOLUME 90.3 FL (78-98); MEAN PLATELET VOLUME 8.7 FL (7.4-10.4); MONOCYTES # (AUTO) 0.7 X10'3 (0-0.9); MONOCYTES % (AUTO) 6.5 % (2-12); NEUTROPHILS # (AUTO) 8.5 X10'3 (1.8-7.7); NEUTROPHILS % (AUTO) 77.4 % (42-75); PLATELET COUNT 565 X10'3 (140-440); RED BLOOD COUNT 3.66 X10'6 (4.70-6.10); RED CELL DISTRIBUTION WIDTH 15.4 % (11.5-14.5)
[2017-07-22 07:20] VITALS: BP 118/58
[2017-07-22] MEDS: K and/or MAG REPLACEMENT MC SCH (08:00)
[2017-07-22] MEDS: CITALOpram 10mg tablet PO SCH (08:45)
[2017-07-22] MEDS: loratadine 10mg tablet PO SCH (08:45)
[2017-07-22] MEDS: fluconazole 100mg tablet PO SCH (08:46)
[2017-07-22] MEDS: losartan 25mg tablet PO SCH (08:46)
[2017-07-22] MEDS: cyclobenzaprine 10mg tablet PO SCH (08:46)
[2017-07-22] MEDS: potassium chloride 10mEq ER tablet PO SCH (08:47)
[2017-07-22] MEDS: HYDROchlorothiazide 12.5mg capsule PO SCH (08:47)
[2017-07-22] MEDS: gabapentin 300mg capsule PO SCH ×3 (08:47→20:53)
[2017-07-22] MEDS: famotidine 20mg tablet PO SCH ×2 (08:47→19:37)
[2017-07-22] MEDS: fenofibrate 145mg tablet PO SCH ×2 (08:47→19:37)
[2017-07-22 11:30] VITALS: BP 115/63
[2017-07-22] MEDS: normal saline 1000ml 1,000 ML IV SCH (12:54)
[2017-07-22] MEDS: LACTOSE-FREE FOOD (BOOST BREEZE) 237ML PO SCH ×2 (13:00→18:00)
[2017-07-22 13:43] LABS: ALBUMIN 2.4 G/DL (3.4-5.0); ANION GAP 8 (8-16); BLOOD UREA NITROGEN 9 MG/DL (7-18); BUN/CREATININE RATIO 8.2 (5.4-32.0); CALCIUM 8.5 MG/DL (8.5-10.1); CHLORIDE 99 MMOL/L (99-107); GLUCOSE 125 MG/DL (70-104); POTASSIUM 3.7 MMOL/L (3.5-5.1); SODIUM 135 MMOL/L (135-145); TOTAL CARBON DIOXIDE 27.7 MMOL/L (24-32); eGFR 67 ML/MIN
[2017-07-22 19:00] VITALS: BP 97/54
[2017-07-23] VITALS: BP 112/57
[2017-07-23] MEDS: morphine/NS 5 mg/ml CADD 50 ML IV SCH ×12 (01:00→23:00)
[2017-07-23] MEDS: piperacillin/tazo 3.375gm/50ml 50 ML IV SCH ×4 (03:04→20:13)
[2017-07-23] MEDS: normal saline 1000ml 1,000 ML IV SCH ×3 (03:04→19:26)
[2017-07-23 05:43] LABS: BASOPHILS # (AUTO) 0.1 X10'3 (0-0.2); BASOPHILS % (AUTO) 0.8 % (0-1); EOSINOPHILS # (AUTO) 0.2 X10'3 (0-0.9); EOSINOPHILS % (AUTO) 2.4 % (0-6); HEMATOCRIT 31.7 % (42.0-52.0); HEMOGLOBIN 10.7 g/dl (14.0-17.9); LYMPHOCYTES # (AUTO) 1.6 X10'3 (1.1-4.8); LYMPHOCYTES % (AUTO) 15.7 % (21-51); MEAN CORPUSCULAR HEMOGLOBIN 30.7 PG (27.0-31.0); MEAN CORPUSCULAR HGB CONC 33.7 % (33.0-36.5); MEAN PLATELET VOLUME 8.4 FL (7.4-10.4); MONOCYTES # (AUTO) 0.7 X10'3 (0-0.9); MONOCYTES % (AUTO) 7.3 % (2-12); NEUTROPHILS # (AUTO) 7.5 X10'3 (1.8-7.7); NEUTROPHILS % (AUTO) 73.8 % (42-75); PLATELET COUNT 536 X10'3 (140-440); RED BLOOD COUNT 3.48 X10'6 (4.70-6.10); RED CELL DISTRIBUTION WIDTH 15.6 % (11.5-14.5); WHITE BLOOD COUNT 10.2 X10'3 (4.5-11.0)
[2017-07-23 06:55] VITALS: BP 119/61
[2017-07-23] MEDS: K and/or MAG REPLACEMENT MC SCH (08:00)
[2017-07-23] MEDS: LACTOSE-FREE FOOD (BOOST BREEZE) 237ML PO SCH ×3 (08:00→17:48)
[2017-07-23] MEDS: CITALOpram 10mg tablet PO SCH (08:22)
[2017-07-23] MEDS: losartan 25mg tablet PO SCH (08:23)
[2017-07-23] MEDS: loratadine 10mg tablet PO SCH (08:23)
[2017-07-23] MEDS: cyclobenzaprine 10mg tablet PO SCH (08:24)
[2017-07-23] MEDS: HYDROchlorothiazide 12.5mg capsule PO SCH (08:24)
[2017-07-23] MEDS: potassium chloride 10mEq ER tablet PO SCH (08:24)
[2017-07-23] MEDS: fluconazole 100mg tablet PO SCH (08:24)
[2017-07-23] MEDS: fenofibrate 145mg tablet PO SCH ×2 (08:25→20:13)
[2017-07-23] MEDS: gabapentin 300mg capsule PO SCH ×3 (08:25→20:13)
[2017-07-23] MEDS: famotidine 20mg tablet PO SCH ×2 (08:25→20:13)
[2017-07-23] MEDS: methylnaltrexone br 12mg/0.6ml inj***SubQ only SQ SCH (08:26)
[2017-07-23 11:30] VITALS: BP 117/71
[2017-07-23 18:30] VITALS: BP 119/76
[2017-07-24] VITALS: BP 139/63
[2017-07-24] MEDS: morphine/NS 5 mg/ml CADD 50 ML IV SCH ×5 (01:00→09:00)
[2017-07-24] MEDS: piperacillin/tazo 3.375gm/50ml 50 ML IV SCH ×4 (02:01→20:31)
[2017-07-24] MEDS: ondansetron/PF 4mg/2ml inj IV PRN ×2 (02:05→08:30)
[2017-07-24 05:58] LABS: BASOPHILS # (AUTO) 0.2 X10'3 (0-0.2); BASOPHILS % (AUTO) 1.4 % (0-1); EOSINOPHILS # (AUTO) 0.2 X10'3 (0-0.9); EOSINOPHILS % (AUTO) 1.5 % (0-6); HEMATOCRIT 40.8 % (42.0-52.0); HEMOGLOBIN 13.7 g/dl (14.0-17.9); LYMPHOCYTES # (AUTO) 0.7 X10'3 (1.1-4.8); LYMPHOCYTES % (AUTO) 5.6 % (21-51); MEAN CORPUSCULAR HEMOGLOBIN 30.4 PG (27.0-31.0); MEAN CORPUSCULAR HGB CONC 33.5 % (33.0-36.5); MEAN CORPUSCULAR VOLUME 90.8 FL (78-98); MEAN PLATELET VOLUME 8.5 FL (7.4-10.4); MONOCYTES # (AUTO) 0.3 X10'3 (0-0.9); MONOCYTES % (AUTO) 2.4 % (2-12); NEUTROPHILS # (AUTO) 10.4 X10'3 (1.8-7.7); NEUTROPHILS % (AUTO) 89.1 % (42-75); PLATELET COUNT 687 X10'3 (140-440); RED BLOOD COUNT 4.49 X10'6 (4.70-6.10); WHITE BLOOD COUNT 11.6 X10'3 (4.5-11.0)
[2017-07-24 06:11] LABS: PHOSPHORUS 4.6 MG/DL (2.3-4.5)
[2017-07-24 06:34] LABS: ALANINE AMINOTRANSFERASE 126 U/L (12-78); ALBUMIN/GLOBULIN RATIO 0.6 (1.1-1.5); ALKALINE PHOSPHATASE 89 IU/L (46-116); ANION GAP 13 (8-16); ASPARTATE AMINO TRANSFERASE 47 U/L (10-37); BILIRUBIN,TOTAL 0.6 MG/DL (0.1-1.0); BLOOD UREA NITROGEN 13 MG/DL (7-18); BUN/CREATININE RATIO 7.5 (5.4-32.0); CALCIUM 9.7 MG/DL (8.5-10.1); CHLORIDE 100 MMOL/L (99-107); CREATININE 1.74 MG/DL (0.60-1.10); GLUCOSE 150 MG/DL (70-104); POTASSIUM 3.5 MMOL/L (3.5-5.1); SODIUM 143 MMOL/L (135-145); TOTAL CARBON DIOXIDE 29.6 MMOL/L (24-32); TOTAL PROTEIN 8.4 G/DL (6.4-8.2); eGFR 39 ML/MIN
[2017-07-24 07:00] VITALS: BP 103/67
[2017-07-24] MEDS: K and/or MAG REPLACEMENT MC SCH (08:00)
[2017-07-24] MEDS: fluconazole 100mg tablet PO SCH (08:32)
[2017-07-24] MEDS: cyclobenzaprine 10mg tablet PO SCH (08:32)
[2017-07-24] MEDS: CITALOpram 10mg tablet PO SCH (08:32)
[2017-07-24] MEDS: loratadine 10mg tablet PO SCH (08:32)
[2017-07-24] MEDS: losartan 25mg tablet PO SCH (08:32)
[2017-07-24] MEDS: gabapentin 300mg capsule PO SCH ×2 (08:33→13:29)
[2017-07-24] MEDS: potassium chloride 10mEq ER tablet PO SCH (08:33)
[2017-07-24] MEDS: HYDROchlorothiazide 12.5mg capsule PO SCH (08:33)
[2017-07-24] MEDS: fenofibrate 145mg tablet PO SCH ×2 (08:33→20:31)
[2017-07-24] MEDS: famotidine 20mg tablet PO SCH ×2 (08:33→20:31)
[2017-07-24] MEDS: LACTOSE-FREE FOOD (BOOST BREEZE) 237ML PO SCH ×3 (08:33→18:29)
[2017-07-24 11:00] VITALS: BP 103/67
[2017-07-24] MEDS: normal saline 1000ml 1,000 ML IV SCH (11:07)
[2017-07-24 18:30] VITALS: BP 96/66
[2017-07-24] MEDS: gabapentin 400mg capsule PO SCH (20:31)
[2017-07-25] VITALS: BP 105/62
[2017-07-25] MEDS: normal saline 1000ml 1,000 ML IV SCH ×4 (01:06→22:30)
[2017-07-25] MEDS: piperacillin/tazo 3.375gm/50ml 50 ML IV SCH ×4 (02:46→20:33)
[2017-07-25 05:43] LABS: BASOPHILS # (AUTO) 0.1 X10'3 (0-0.2); BASOPHILS % (AUTO) 0.9 % (0-1); EOSINOPHILS # (AUTO) 0.2 X10'3 (0-0.9); EOSINOPHILS % (AUTO) 2.4 % (0-6); HEMATOCRIT 37.1 % (42.0-52.0); HEMOGLOBIN 12.7 g/dl (14.0-17.9); LYMPHOCYTES # (AUTO) 1.7 X10'3 (1.1-4.8); LYMPHOCYTES % (AUTO) 17.1 % (21-51); MEAN CORPUSCULAR HEMOGLOBIN 30.8 PG (27.0-31.0); MEAN CORPUSCULAR HGB CONC 34.2 % (33.0-36.5); MEAN PLATELET VOLUME 8.1 FL (7.4-10.4); MONOCYTES # (AUTO) 0.8 X10'3 (0-0.9); MONOCYTES % (AUTO) 8.2 % (2-12); NEUTROPHILS % (AUTO) 71.4 % (42-75); PLATELET COUNT 600 X10'3 (140-440); RED BLOOD COUNT 4.12 X10'6 (4.70-6.10); RED CELL DISTRIBUTION WIDTH 15.5 % (11.5-14.5); WHITE BLOOD COUNT 9.9 X10'3 (4.5-11.0)
[2017-07-25 07:00] VITALS: BP 86/51
[2017-07-25] MEDS: famotidine 20mg tablet PO SCH ×2 (07:02→20:33)
[2017-07-25] MEDS: CITALOpram 10mg tablet PO SCH (07:03)
[2017-07-25] MEDS: fluconazole 100mg tablet PO SCH (07:03)
[2017-07-25] MEDS: gabapentin 400mg capsule PO SCH ×2 (07:03→20:33)
[2017-07-25] MEDS: potassium chloride 10mEq ER tablet PO SCH (07:03)
[2017-07-25] MEDS: loratadine 10mg tablet PO SCH (07:03)
[2017-07-25] MEDS: fenofibrate 145mg tablet PO SCH ×2 (07:03→20:33)
[2017-07-25] MEDS: losartan 25mg tablet PO SCH (07:04)
[2017-07-25] MEDS: K and/or MAG REPLACEMENT MC SCH (07:04)
[2017-07-25] MEDS: LACTOSE-FREE FOOD (BOOST BREEZE) 237ML PO SCH ×3 (07:04→18:00)
[2017-07-25] MEDS: methylnaltrexone br 12mg/0.6ml inj***SubQ only SQ SCH (08:00)
[2017-07-25 11:53] VITALS: BP 96/65
[2017-07-25 18:30] VITALS: BP 110/71
[2017-07-25 18:33] LABS: ALBUMIN 2.6 G/DL (3.4-5.0); ANION GAP 15 (8-16); BLOOD UREA NITROGEN 35 MG/DL (7-18); BUN/CREATININE RATIO 7.3 (5.4-32.0); CALCIUM 8.6 MG/DL (8.5-10.1); CHLORIDE 95 MMOL/L (99-107); CREATININE 4.78 MG/DL (0.60-1.10); GLUCOSE 104 MG/DL (70-104); POTASSIUM 4.5 MMOL/L (3.5-5.1); SODIUM 135 MMOL/L (135-145); TOTAL CARBON DIOXIDE 25.2 MMOL/L (24-32); eGFR 12 ML/MIN
[2017-07-25] MEDS ORDERED: normal saline 1000ml 1,000 ML IVB ONE (20:40)
[2017-07-26] MEDS: piperacillin/tazo 3.375gm/50ml 50 ML IV SCH ×2 (02:06→08:31)
[2017-07-26] MEDS: normal saline 1000ml 1,000 ML IV SCH ×2 (04:13→09:41)
[2017-07-26] MEDS ORDERED: acetaminophen 325mg tablet PO PRN (04:40)
[2017-07-26 06:04] LABS: BASOPHILS # (AUTO) 0.1 X10'3 (0-0.2); BASOPHILS % (AUTO) 0.8 % (0-1); EOSINOPHILS # (AUTO) 0.4 X10'3 (0-0.9); HEMATOCRIT 31.8 % (42.0-52.0); HEMOGLOBIN 10.6 g/dl (14.0-17.9); LYMPHOCYTES # (AUTO) 1.3 X10'3 (1.1-4.8); LYMPHOCYTES % (AUTO) 13.8 % (21-51); MEAN CORPUSCULAR HEMOGLOBIN 30.2 PG (27.0-31.0); MEAN CORPUSCULAR HGB CONC 33.5 % (33.0-36.5); MEAN CORPUSCULAR VOLUME 90.2 FL (78-98); MEAN PLATELET VOLUME 8.2 FL (7.4-10.4); MONOCYTES # (AUTO) 0.7 X10'3 (0-0.9); NEUTROPHILS # (AUTO) 6.8 X10'3 (1.8-7.7); NEUTROPHILS % (AUTO) 73.4 % (42-75); PLATELET COUNT 398 X10'3 (140-440); RED BLOOD COUNT 3.52 X10'6 (4.70-6.10); RED CELL DISTRIBUTION WIDTH 15.7 % (11.5-14.5); WHITE BLOOD COUNT 9.3 X10'3 (4.5-11.0)
[2017-07-26 06:35] LABS: ALBUMIN 2.1 G/DL (3.4-5.0); ANION GAP 14 (8-16); BLOOD UREA NITROGEN 38 MG/DL (7-18); BUN/CREATININE RATIO 7.8 (5.4-32.0); CALCIUM 7.9 MG/DL (8.5-10.1); CHLORIDE 99 MMOL/L (99-107); CREATININE 4.85 MG/DL (0.60-1.10); GLUCOSE 99 MG/DL (70-104); POTASSIUM 4.2 MMOL/L (3.5-5.1); SODIUM 132 MMOL/L (135-145); TOTAL CARBON DIOXIDE 19.2 MMOL/L (24-32); eGFR 12 ML/MIN
[2017-07-26 07:17] VITALS: BP 113/64
[2017-07-26] MEDS: LACTOSE-FREE FOOD (BOOST BREEZE) 237ML PO SCH ×3 (08:00→18:00)
[2017-07-26] MEDS: K and/or MAG REPLACEMENT MC SCH (08:00)
[2017-07-26] MEDS: CITALOpram 10mg tablet PO SCH (08:32)
[2017-07-26] MEDS: loratadine 10mg tablet PO SCH (08:32)
[2017-07-26] MEDS: losartan 25mg tablet PO SCH (08:32)
[2017-07-26] MEDS: potassium chloride 10mEq ER tablet PO SCH (08:33)
[2017-07-26] MEDS: fluconazole 100mg tablet PO SCH (08:33)
[2017-07-26] MEDS: gabapentin 400mg capsule PO SCH ×2 (08:34→21:28)
[2017-07-26] MEDS: famotidine 20mg tablet PO SCH ×2 (08:35→21:28)
[2017-07-26] MEDS: fenofibrate 145mg tablet PO SCH ×2 (08:35→21:28)
[2017-07-26 11:51] VITALS: BP 125/66
[2017-07-26] MEDS ORDERED: fluconazole 100mg tablet PO SCH (12:05)
[2017-07-26] MEDS: sodium bicarbonate (8.4%) inj. 100 MEQ in sodium chloride 0.45% 1,000 ML IV SCH ×2 (14:08→21:26)
[2017-07-26 20:00] VITALS: BP 136/79
[2017-07-27] VITALS: BP 127/67
[2017-07-27] MEDS: sodium bicarbonate (8.4%) inj. 100 MEQ in sodium chloride 0.45% 1,000 ML IV SCH ×3 (04:15→21:24)
[2017-07-27 06:36] LABS: ALBUMIN 2.1 G/DL (3.4-5.0); ANION GAP 15 (8-16); BLOOD UREA NITROGEN 38 MG/DL (7-18); BUN/CREATININE RATIO 7.4 (5.4-32.0); CALCIUM 7.7 MG/DL (8.5-10.1); CHLORIDE 100 MMOL/L (99-107); CREATININE 5.17 MG/DL (0.60-1.10); GLUCOSE 96 MG/DL (70-104); POTASSIUM 3.9 MMOL/L (3.5-5.1); SODIUM 136 MMOL/L (135-145); TOTAL CARBON DIOXIDE 21.3 MMOL/L (24-32); eGFR 11 ML/MIN
[2017-07-27 07:00] VITALS: BP 132/70
[2017-07-27] MEDS: MESSAGE TO NURSING PO SCH (07:00)
[2017-07-27] MEDS: K and/or MAG REPLACEMENT MC SCH (08:00)
[2017-07-27] MEDS: LACTOSE-FREE FOOD (BOOST BREEZE) 237ML PO SCH ×4 (08:00→12:54)
[2017-07-27] MEDS: methylnaltrexone br 12mg/0.6ml inj***SubQ only SQ SCH (08:59)
[2017-07-27] MEDS: CITALOpram 10mg tablet PO SCH (08:59)
[2017-07-27] MEDS: gabapentin 400mg capsule PO SCH (09:00)
[2017-07-27] MEDS: loratadine 10mg tablet PO SCH (09:00)
[2017-07-27] MEDS: potassium chloride 10mEq ER tablet PO SCH (09:00)
[2017-07-27] MEDS: clopidogrel 75mg tablet PO SCH (09:00)
[2017-07-27] MEDS: famotidine 20mg tablet PO SCH ×2 (09:00→21:20)
[2017-07-27] MEDS: fenofibrate 145mg tablet PO SCH ×2 (09:01→21:20)
[2017-07-27 09:59] LABS: CLARITY,URINE SLIGHTLY CLOUDY (Clear); COLOR,URINE YELLOW (Yellow); GLUCOSE, URINE NEGATIVE (Neg); KETONES,URINE NEGATIVE (Neg); LEUKOCYTE ESTERASE ,URINE NEGATIVE (Neg); NITRITES, URINE NEGATIVE (Neg); OCCULT BLOOD,URINE MODERATE (Neg); PROTEIN,URINE TRACE mg/dl (Neg); UROBILINOGEN,URINE 0.2 E.U/dL (0.2-1.0)
[2017-07-27 10:32] LABS: UA COLLECTION TYPE NON-SPECIFIED
[2017-07-27 10:38] LABS: AMORPHOUS PHOSPHATES 1+; BACTERIA,URINE NONE SEEN /HPF (Neg); CAL OXALATE CRYSTALS FEW /HPF (NEGATIVE); CELLULAR CAST 0-4 /LPF (NEGATIVE); MUCUS STRANDS NONE SEEN /LPF (Neg); RBC,URINE 0-2 /HPF (0-2); SQUAMOUS EPITHELIAL CELL,UR FEW /LPF (FEW); WAXY CASTS,URINE 0-3 /LPF (NEGATIVE); WBC,URINE 0-4 /HPF (0-4)
[2017-07-27 10:57] LABS: UA EOSINOPHILS NO EOS /HPF
[2017-07-27 11:00] VITALS: BP 124/71
[2017-07-27] MEDS: acetaminophen 325mg tablet PO PRN (14:27)
[2017-07-27 20:00] VITALS: BP_SYST 130; BP_DIAS 76; BP_DIAS 77
[2017-07-28] VITALS: BP 130/72
[2017-07-28] MEDS: sodium bicarbonate (8.4%) inj. 100 MEQ in sodium chloride 0.45% 1,000 ML IV SCH ×4 (04:47→19:57)
[2017-07-28 06:04] LABS: ANION GAP 11 (8-16); BLOOD UREA NITROGEN 37 MG/DL (7-18); BUN/CREATININE RATIO 7.4 (5.4-32.0); CALCIUM 7.7 MG/DL (8.5-10.1); CHLORIDE 101 MMOL/L (99-107); CREATININE 5.03 MG/DL (0.60-1.10); GLUCOSE 136 MG/DL (70-104); POTASSIUM 3.3 MMOL/L (3.5-5.1); SODIUM 137 MMOL/L (135-145); TOTAL CARBON DIOXIDE 24.8 MMOL/L (24-32); eGFR 12 ML/MIN
[2017-07-28] MEDS: K and/or MAG REPLACEMENT MC SCH (06:29)
[2017-07-28] MEDS: MESSAGE TO NURSING PO SCH (06:29)
[2017-07-28 07:00] VITALS: BP_SYST 13; BP_SYST 131; BP_SYST 140; BP_DIAS 71; BP_DIAS 77; BP_DIAS 85
[2017-07-28] MEDS: potassium chloride 10mEq ER tablet PO SCH (07:28)
[2017-07-28] MEDS: clopidogrel 75mg tablet PO SCH (07:28)
[2017-07-28] MEDS: famotidine 20mg tablet PO SCH ×2 (07:28→19:51)
[2017-07-28] MEDS: CITALOpram 10mg tablet PO SCH (07:28)
[2017-07-28] MEDS: fenofibrate 145mg tablet PO SCH ×2 (07:28→19:51)
[2017-07-28] MEDS: gabapentin 300mg capsule PO SCH (07:29)
[2017-07-28] MEDS: loratadine 10mg tablet PO SCH (07:29)
[2017-07-28] MEDS: LACTOSE-FREE FOOD (BOOST BREEZE) 237ML PO SCH ×2 (08:00→19:51)
[2017-07-28] MEDS: potassium Cl 40MEQ/NS 500ml 500 ML IV PRN (10:00)
[2017-07-28 11:00] VITALS: BP 125/73
[2017-07-28 13:51] VITALS: BP_SYST 130; BP_SYST 136; BP_DIAS 80; BP_DIAS 85
[2017-07-28 16:30] VITALS: BP 139/73
[2017-07-28 20:00] VITALS: BP_SYST 126; BP_SYST 130; BP_DIAS 74; BP_DIAS 75
[2017-07-29] VITALS (7 sets, daily range): BP systolic 112–141; BP diastolic 73–88
[2017-07-29] MEDS: sodium bicarbonate (8.4%) inj. 100 MEQ in sodium chloride 0.45% 1,000 ML IV SCH (03:31)
[2017-07-29 05:50] LABS: ANION GAP 10 (8-16); BLOOD UREA NITROGEN 29 MG/DL (7-18); CALCIUM 7.6 MG/DL (8.5-10.1); CHLORIDE 104 MMOL/L (99-107); CREATININE 4.13 MG/DL (0.60-1.10); GLUCOSE 96 MG/DL (70-104); POTASSIUM 3.4 MMOL/L (3.5-5.1); SODIUM 141 MMOL/L (135-145); TOTAL CARBON DIOXIDE 26.6 MMOL/L (24-32); eGFR 14 ML/MIN
[2017-07-29] MEDS: MESSAGE TO NURSING PO SCH (06:29)
[2017-07-29] MEDS ORDERED: LIDOcaine 1% 30ml vial 5 ML in potassium Cl 40MEQ/NS 500ml 500 ML IV PRN (06:40)
[2017-07-29] MEDS: K and/or MAG REPLACEMENT MC SCH (07:34)
[2017-07-29] MEDS: LACTOSE-FREE FOOD (BOOST BREEZE) 237ML PO SCH ×3 (08:00→18:00)
[2017-07-29] MEDS: fenofibrate 145mg tablet PO SCH ×2 (08:07→19:38)
[2017-07-29] MEDS: clopidogrel 75mg tablet PO SCH (08:07)
[2017-07-29] MEDS: CITALOpram 10mg tablet PO SCH (08:07)
[2017-07-29] MEDS: gabapentin 300mg capsule PO SCH (08:07)
[2017-07-29] MEDS: loratadine 10mg tablet PO SCH (08:07)
[2017-07-29] MEDS: potassium chloride 10mEq ER tablet PO SCH (08:07)
[2017-07-29] MEDS: famotidine 20mg tablet PO SCH ×2 (08:07→19:42)
[2017-07-29] MEDS: acetaminophen 325mg tablet PO PRN (19:43)
[2017-07-30] VITALS: BP 146/76
[2017-07-30 04:54] LABS: ALBUMIN 2.2 G/DL (3.4-5.0); ANION GAP 10 (8-16); BLOOD UREA NITROGEN 24 MG/DL (7-18); CALCIUM 7.8 MG/DL (8.5-10.1); CHLORIDE 105 MMOL/L (99-107); CREATININE 3.41 MG/DL (0.60-1.10); GLUCOSE 92 MG/DL (70-104); POTASSIUM 3.6 MMOL/L (3.5-5.1); SODIUM 139 MMOL/L (135-145); eGFR 18 ML/MIN
[2017-07-30 07:00] VITALS: BP 145/81
[2017-07-30] MEDS: MESSAGE TO NURSING PO SCH (07:00)
[2017-07-30] MEDS: K and/or MAG REPLACEMENT MC SCH (07:12)
[2017-07-30] MEDS: clopidogrel 75mg tablet PO SCH (08:12)
[2017-07-30] MEDS: famotidine 20mg tablet PO SCH (08:12)
[2017-07-30] MEDS: gabapentin 300mg capsule PO SCH (08:12)
[2017-07-30] MEDS: fenofibrate 145mg tablet PO SCH (08:12)
[2017-07-30] MEDS: CITALOpram 10mg tablet PO SCH (08:12)
[2017-07-30] MEDS: loratadine 10mg tablet PO SCH (08:12)
[2017-07-30] MEDS: potassium chloride 10mEq ER tablet PO SCH (08:13)
[2017-07-30] MEDS: LACTOSE-FREE FOOD (BOOST BREEZE) 237ML PO SCH (08:17)
[2017-07-30 10:18] VITALS: BP 145/81
[2017-07-30 11:00] VITALS: BP 129/77
[2017-07-30] MEDS: acetaminophen 325mg tablet PO PRN (11:22)
[2017-07-30 12:40] VITALS: BP 129/77
[2017-07-30 12:41] VITALS: BP_SYST 118; BP_SYST 125; BP_SYST 129; BP_DIAS 77; BP_DIAS 82; BP_DIAS 86
== END 2017-07-30 16:15 | DRG 853 ==
LOC: ER 00:08 → ED HOLD 02:45 → ORTHO 4S 07-09 02:01 → PACU 07-11 13:00 → CICU 2S 07-11 16:44 → ICU 2S 07-13 06:15 → MED 3N 07-13 17:08
PROVIDERS: ADMIT Internal Medicine; ATTEND Internal Medicine
PROC: 0DBN4ZZ Excision of Sigmoid Colon, Percutaneous Endoscopic Approach (ICD-10-PCS; 2017-07-11)
PROC: 0D1B4Z4 Bypass Ileum to Cutaneous, Percutaneous Endoscopic Approach (ICD-10-PCS; 2017-07-11)
PROC: 05HM33Z Insertion of Infusion Device into Right Internal Jugular Vein, Percutaneous Approach (ICD-10-PCS; 2017-07-11)
PROC: 5A1935Z Respiratory Ventilation, Less than 24 Consecutive Hours (ICD-10-PCS; principal; 2017-07-11 13:46)
PROC: BW211ZZ Computerized Tomography (CT Scan) of Abdomen and Pelvis using Low Osmolar Contrast (ICD-10-PCS; 2017-07-17)
PROC: 0W9J30Z Drainage of Pelvic Cavity with Drainage Device, Percutaneous Approach (ICD-10-PCS; 2017-07-21)
DX: A41.9 Sepsis, unspecified organism (principal); E43 Unspecified severe protein-calorie malnutrition; J96.01 Acute respiratory failure with hypoxia; N17.0 Acute kidney failure with tubular necrosis; K65.1 Peritoneal abscess; E87.0 Hyperosmolality and hypernatremia; D68.9 Coagulation defect, unspecified; E11.40 Type 2 diabetes mellitus with diabetic neuropathy, unspecified; I69.354 Hemiplegia and hemiparesis following cerebral infarction affecting left non-dominant side; E87.1 Hypo-osmolality and hyponatremia; K57.20 Diverticulitis of large intestine with perforation and abscess without bleeding; B17.9 Acute viral hepatitis, unspecified; K56.7 Ileus, unspecified; E78.5 Hyperlipidemia, unspecified; E87.6 Hypokalemia; G89.4 Chronic pain syndrome; E86.0 Dehydration; D64.9 Anemia, unspecified; B96.20 Unspecified Escherichia coli [E. coli] as the cause of diseases classified elsewhere; I10 Essential (primary) hypertension; Z66 Do not resuscitate; Z88.6 Allergy status to analgesic agent; Z91.81 History of falling; Z93.3 Colostomy status; Z79.02 Long term (current) use of antithrombotics/antiplatelets; Z79.84 Long term (current) use of oral hypoglycemic drugs; Z87.891 Personal history of nicotine dependence; Z68.25 Body mass index [BMI] 25.0-25.9, adult
CPT/HCPCS: 36415; 36600; 49406; 70450; 71045; 74176; 74177; 76700; 78707; 80048; 80053; 81001; 82570; 82803; 82810; 82948; 83036; 83605; 83690; 83735; 84100; 84132; 84134; 84156; 84300; 84478; 85018; 85025; 85610; 85730; 86705; 86706; 86709; 86803; 86885; 86900; 86901; 86920; 87040; 87070; 87075; 87077; 87186; 87207; 87340; 88307; 93005; 94002; 94003; 94640; 94760; 96361; 96365; 96375; 97110; 97116; 97161; 97530; 97535; 99291; A4315; A4421; A6212; A6213; A6253; A6255; A6257; A6258; A6402; A6446; A6449; A7000; A7015; A9562; C1729; C1758; C1769; C9113; J0360; J0690; J1450; J1644; J2001; J2212; J2250; J2270; J2274; J2405; J2543; J2704; J3010; J3430; J3480; J3490; J7030; J7120; Q9963; Q9967

== ENCOUNTER 2018-01-08 09:32 | Inpatient (IN) | payer MEDICARE, MEDICAID ==
[~2018-01-08] VITALS: Ht 185.4 cm; Wt 71.0 kg
[2018-01-08] MEDS ORDERED: normal saline 1000ML IV soln IVB ONE (10:35)
[2018-01-08] MEDS ORDERED: proCHLORperazine 10 MG/2 ml inj IV ONE (10:35)
[2018-01-08] MEDS ORDERED: morphine 4 MG/ML inj SYRINge IV ONE (10:35)
[2018-01-08] MEDS ORDERED: famotidine/PF 10 mg/ml inj IV ONE (10:35)
[2018-01-08 11:22] LABS: BASOPHILS % (AUTO) 0.2 % (0-1); EOSINOPHILS # (AUTO) 0.1 X10'3 (0-0.9); EOSINOPHILS % (AUTO) 0.9 % (0-6); HEMATOCRIT 34.1 % (42.0-52.0); HEMOGLOBIN 11.5 g/dl (14.0-17.9); LYMPHOCYTES % (AUTO) 6.4 % (21-51); MEAN CORPUSCULAR HEMOGLOBIN 29.9 PG (27.0-31.0); MEAN CORPUSCULAR HGB CONC 33.7 % (33.0-36.5); MEAN CORPUSCULAR VOLUME 88.9 FL (78-98); MEAN PLATELET VOLUME 8.9 FL (7.4-10.4); MONOCYTES # (AUTO) 0.8 X10'3 (0-0.9); MONOCYTES % (AUTO) 5.1 % (2-12); NEUTROPHILS # (AUTO) 13.1 X10'3 (1.8-7.7); NEUTROPHILS % (AUTO) 87.4 % (42-75); PLATELET COUNT 379 X10'3 (140-440); RED BLOOD COUNT 3.84 X10'6 (4.70-6.10); RED CELL DISTRIBUTION WIDTH 16.2 % (11.5-14.5)
[2018-01-08 11:36] LABS: ALANINE AMINOTRANSFERASE 23 U/L (12-78); ALBUMIN 3.3 G/DL (3.4-5.0); ALBUMIN/GLOBULIN RATIO 0.7 (1.1-1.5); ALKALINE PHOSPHATASE 61 IU/L (46-116); AMYLASE 68 U/L (25-115); ANION GAP 10 (8-16); ASPARTATE AMINO TRANSFERASE 26 U/L (10-37); BILIRUBIN,TOTAL 0.3 MG/DL (0.1-1.0); BLOOD UREA NITROGEN 20 MG/DL (7-18); BUN/CREATININE RATIO 15.6 (5.4-32.0); CALCIUM 9.4 MG/DL (8.5-10.1); CHLORIDE 100 MMOL/L (99-107); CREATININE 1.28 MG/DL (0.60-1.10); GLUCOSE 143 MG/DL (70-104); POTASSIUM 4.2 MMOL/L (3.5-5.1); SODIUM 138 MMOL/L (135-145); TOTAL CARBON DIOXIDE 27.8 MMOL/L (24-32); TOTAL PROTEIN 8.2 G/DL (6.4-8.2); eGFR 56 ML/MIN
[2018-01-08 12:34] LABS: CLARITY,URINE CLOUDY (Clear); COLOR,URINE YELLOW (Yellow); GLUCOSE, URINE NEGATIVE (Neg); KETONES,URINE NEGATIVE (Neg); LEUKOCYTE ESTERASE ,URINE MODERATE (Neg); NITRITES, URINE POSITIVE (Neg); OCCULT BLOOD,URINE SMALL (Neg); PROTEIN,URINE TRACE mg/dl (Neg); UROBILINOGEN,URINE 0.2 E.U/dL (0.2-1.0)
[2018-01-08 12:37] LABS: UA COLLECTION TYPE VOIDED
[2018-01-08 12:45] LABS: HYALINE CASTS 0-3 /LPF (NEGATIVE); SQUAMOUS EPITHELIAL CELL,UR FEW /LPF (FEW)
[2018-01-08 12:46] LABS: BACTERIA,URINE 1+ /HPF (Neg); WBC,URINE 30-50 /HPF (0-4)
[2018-01-08] MEDS: dextrose 5%-1/2 normal saline 1,000 ML IV SCH ×2 (12:48→17:01)
[2018-01-08] MEDS ORDERED: magnesium hydroxide 30ml (MOM) UD suspension PO PRN (12:50)
[2018-01-08] MEDS ORDERED: acetaminophen 325mg tablet PO PRN (12:50)
[2018-01-08] MEDS ORDERED: morphine 2 MG/ML inj. syringe IV PRN ×3 (12:50→17:45)
[2018-01-08] MEDS ORDERED: mag hydrox/Alum hydrox/simeth 30ml oral suspension PO PRN (12:50)
[2018-01-08] MEDS ORDERED: CLON-529 PO (13:32)
[2018-01-08] MEDS ORDERED: DOCU-28 PO (13:33)
[2018-01-08] MEDS ORDERED: PEG15DRO4 OP (13:34)
[2018-01-08] MEDS ORDERED: FLO0.4C PO (13:35)
[2018-01-08] MEDS ORDERED: OXYC-150 PO (13:37)
[2018-01-08] MEDS ORDERED: ROPI1TAB2 PO (13:38)
[2018-01-08] MEDS ORDERED: FENO145T38 PO (13:39)
[2018-01-08] MEDS ORDERED: VITC500T PO (13:41)
[2018-01-08] MEDS: ondansetron/PF 4mg/2ml inj IV PRN (14:39)
[2018-01-08 15:30] VITALS: BP 142/77
[2018-01-08] MEDS ORDERED: metoclopramide 5 mg/ml inj IV PRN (17:40)
[2018-01-08] MEDS: morphine 2 MG/ML inj. syringe IV PRN ×3 (17:47→23:11)
[2018-01-08] MEDS: CefTRIAXone/D5W-Rocephin 1gm 50 ML IV SCH (18:04)
[2018-01-08 20:00] VITALS: BP 164/70
[2018-01-09] VITALS: BP 153/72
[2018-01-09] MEDS: dextrose 5%-1/2 normal saline 1,000 ML IV SCH ×2 (02:50→18:48)
[2018-01-09] MEDS: morphine 2 MG/ML inj. syringe IV PRN ×6 (04:24→22:19)
[2018-01-09 05:16] LABS: BASOPHILS % (AUTO) 0.3 % (0-1); EOSINOPHILS # (AUTO) 0.1 X10'3 (0-0.9); EOSINOPHILS % (AUTO) 0.7 % (0-6); HEMATOCRIT 29.1 % (42.0-52.0); HEMOGLOBIN 9.7 g/dl (14.0-17.9); LYMPHOCYTES # (AUTO) 1.3 X10'3 (1.1-4.8); LYMPHOCYTES % (AUTO) 10.6 % (21-51); MEAN CORPUSCULAR HEMOGLOBIN 29.4 PG (27.0-31.0); MEAN CORPUSCULAR HGB CONC 33.3 % (33.0-36.5); MEAN CORPUSCULAR VOLUME 88.4 FL (78-98); MEAN PLATELET VOLUME 9.3 FL (7.4-10.4); MONOCYTES # (AUTO) 1.1 X10'3 (0-0.9); MONOCYTES % (AUTO) 9.1 % (2-12); NEUTROPHILS # (AUTO) 9.4 X10'3 (1.8-7.7); NEUTROPHILS % (AUTO) 79.3 % (42-75); PLATELET COUNT 316 X10'3 (140-440); RED BLOOD COUNT 3.29 X10'6 (4.70-6.10); RED CELL DISTRIBUTION WIDTH 16.8 % (11.5-14.5); WHITE BLOOD COUNT 11.9 X10'3 (4.5-11.0)
[2018-01-09 05:31] LABS: ALBUMIN 2.8 G/DL (3.4-5.0); ANION GAP 10 (8-16); BLOOD UREA NITROGEN 17 MG/DL (7-18); BUN/CREATININE RATIO 14.4 (5.4-32.0); CALCIUM 8.1 MG/DL (8.5-10.1); CHLORIDE 102 MMOL/L (99-107); CREATININE 1.18 MG/DL (0.60-1.10); GLUCOSE 120 MG/DL (70-104); SODIUM 137 MMOL/L (135-145); TOTAL CARBON DIOXIDE 25.3 MMOL/L (24-32); eGFR 61 ML/MIN
[2018-01-09] MEDS: enoxaparin 40mg/0.4ml syringe SUBCUT SCH (08:13)
[2018-01-09] MEDS: CefTRIAXone/D5W-Rocephin 1gm 50 ML IV SCH (08:22)
[2018-01-09 08:47] VITALS: BP 140/71
[2018-01-09 12:06] VITALS: BP 155/89
[2018-01-09 12:08] VITALS: BP_SYST 127; BP_SYST 146; BP_SYST 155; BP_DIAS 77; BP_DIAS 80; BP_DIAS 89
[2018-01-09 20:00] VITALS: BP_SYST 132; BP_SYST 148; BP_DIAS 76; BP_DIAS 83
[2018-01-10] VITALS: BP 144/86
[2018-01-10] MEDS: dextrose 5%-1/2 normal saline 1,000 ML IV SCH ×3 (00:36→21:29)
[2018-01-10] MEDS: ondansetron/PF 4mg/2ml inj IV PRN ×2 (01:38→21:30)
[2018-01-10] MEDS: morphine 2 MG/ML inj. syringe IV PRN ×2 (01:45→21:41)
[2018-01-10 05:46] LABS: BASOPHILS # (AUTO) 0.1 X10'3 (0-0.2); BASOPHILS % (AUTO) 0.4 % (0-1); EOSINOPHILS % (AUTO) 0 % (0-6); HEMATOCRIT 30.9 % (42.0-52.0); HEMOGLOBIN 10.5 g/dl (14.0-17.9); LYMPHOCYTES # (AUTO) 1.1 X10'3 (1.1-4.8); LYMPHOCYTES % (AUTO) 7.9 % (21-51); MEAN CORPUSCULAR VOLUME 88.2 FL (78-98); MEAN PLATELET VOLUME 9.2 FL (7.4-10.4); MONOCYTES # (AUTO) 0.9 X10'3 (0-0.9); MONOCYTES % (AUTO) 6.8 % (2-12); NEUTROPHILS # (AUTO) 11.5 X10'3 (1.8-7.7); NEUTROPHILS % (AUTO) 84.9 % (42-75); PLATELET COUNT 338 X10'3 (140-440); RED CELL DISTRIBUTION WIDTH 15.7 % (11.5-14.5); WHITE BLOOD COUNT 13.5 X10'3 (4.5-11.0)
[2018-01-10 05:55] LABS: ALBUMIN 2.8 G/DL (3.4-5.0); ANION GAP 10 (8-16); BLOOD UREA NITROGEN 20 MG/DL (7-18); BUN/CREATININE RATIO 18.2 (5.4-32.0); CALCIUM 7.8 MG/DL (8.5-10.1); CHLORIDE 100 MMOL/L (99-107); GLUCOSE 133 MG/DL (70-104); POTASSIUM 3.3 MMOL/L (3.5-5.1); SODIUM 139 MMOL/L (135-145); TOTAL CARBON DIOXIDE 29.4 MMOL/L (24-32); eGFR 67 ML/MIN
[2018-01-10] MEDS: enoxaparin 40mg/0.4ml syringe SUBCUT SCH (07:55)
[2018-01-10] MEDS: CefTRIAXone/D5W-Rocephin 1gm 50 ML IV SCH (07:55)
[2018-01-10 08:00] VITALS: BP 147/75
[2018-01-10] MEDS ORDERED: potassium Cl 20 mEq SR tablet PO PRN (09:05)
[2018-01-10] MEDS ORDERED: potassium Cl 40MEQ/NS 500ml 500 ML IV PRN ×2 (09:05)
[2018-01-10] MEDS ORDERED: HYDROcodone/acetaminophen 5mg/325mg tablet PO PRN (09:05)
[2018-01-10 11:00] VITALS: BP 154/79
[2018-01-10 20:00] VITALS: BP 147/84
[2018-01-11] VITALS: BP 162/89
[2018-01-11] MEDS: morphine 2 MG/ML inj. syringe IV PRN (02:35)
[2018-01-11 05:03] LABS: BASOPHILS % (AUTO) 0.3 % (0-1); EOSINOPHILS % (AUTO) 0 % (0-6); HEMATOCRIT 30.3 % (42.0-52.0); HEMOGLOBIN 10.2 g/dl (14.0-17.9); LYMPHOCYTES % (AUTO) 7.9 % (21-51); MEAN CORPUSCULAR HEMOGLOBIN 29.7 PG (27.0-31.0); MEAN CORPUSCULAR HGB CONC 33.5 % (33.0-36.5); MEAN CORPUSCULAR VOLUME 88.4 FL (78-98); MEAN PLATELET VOLUME 9.2 FL (7.4-10.4); MONOCYTES # (AUTO) 0.7 X10'3 (0-0.9); MONOCYTES % (AUTO) 5.6 % (2-12); NEUTROPHILS # (AUTO) 10.9 X10'3 (1.8-7.7); NEUTROPHILS % (AUTO) 86.2 % (42-75); PLATELET COUNT 330 X10'3 (140-440); RED BLOOD COUNT 3.43 X10'6 (4.70-6.10); RED CELL DISTRIBUTION WIDTH 15.7 % (11.5-14.5); WHITE BLOOD COUNT 12.6 X10'3 (4.5-11.0)
[2018-01-11 05:27] LABS: ALBUMIN 2.7 G/DL (3.4-5.0); ANION GAP 10 (8-16); BLOOD UREA NITROGEN 24 MG/DL (7-18); BUN/CREATININE RATIO 22.9 (5.4-32.0); CHLORIDE 105 MMOL/L (99-107); CREATININE 1.05 MG/DL (0.60-1.10); GLUCOSE 132 MG/DL (70-104); MAGNESIUM 2.2 MG/DL (1.5-2.4); POTASSIUM 3.1 MMOL/L (3.5-5.1); SODIUM 142 MMOL/L (135-145); TOTAL CARBON DIOXIDE 27.1 MMOL/L (24-32); eGFR 70 ML/MIN
[2018-01-11 07:15] VITALS: BP 157/76
[2018-01-11] MEDS ORDERED: fenofibrate 145mg tablet PO SCH (08:00)
[2018-01-11] MEDS ORDERED: ascorbic acid 500mg tablet PO SCH (08:00)
[2018-01-11] MEDS: enoxaparin 40mg/0.4ml syringe SUBCUT SCH (08:00)
[2018-01-11] MEDS ORDERED: tamsulosin 0.4mg capsule PO SCH (08:00)
[2018-01-11] MEDS ORDERED: oxyCODONE/APAP 10/325mg tablet PO SCH (08:00)
[2018-01-11] MEDS ORDERED: furosemide 40mg tablet PO SCH (08:00)
[2018-01-11] MEDS ORDERED: docusate sod 100mg capsule PO SCH (08:00)
[2018-01-11] MEDS ORDERED: ONDANSETRON HCL PO PRN (08:00)
[2018-01-11] MEDS ORDERED: clopidogrel 75mg tablet PO SCH (08:00)
[2018-01-11] MEDS ORDERED: polyvinyl alcohol ophthalmic drops 15ml bottle EACHEYE PRN (08:10)
[2018-01-11] MEDS: cloNIDine 0.1 mg tablet PO SCH ×2 (09:50→14:04)
[2018-01-11] MEDS: potassium Cl 20 mEq SR tablet PO PRN ×2 (09:54→14:19)
[2018-01-11] MEDS: dextrose 5%-1/2 normal saline 1,000 ML IV SCH (11:50)
[2018-01-11] MEDS ORDERED: CARBOXYMETHYLCELLULOSE SODIUM 15 ML DROPS EACHEYE PRN (13:15)
[2018-01-11] MEDS ORDERED: ROPINIRole 1mg tablet PO SCH (21:00)
== END 2018-01-11 17:10 | DRG 393 ==
LOC: ER 09:33 → ED HOLD 12:48 → SUR 3N 15:20
PROVIDERS: ADMIT Internal Medicine; ATTEND Internal Medicine
DX: K91.89 Other postprocedural complications and disorders of digestive system (principal); I50.33 Acute on chronic diastolic (congestive) heart failure; K56.7 Ileus, unspecified; N39.0 Urinary tract infection, site not specified; I69.354 Hemiplegia and hemiparesis following cerebral infarction affecting left non-dominant side; N17.9 Acute kidney failure, unspecified; B96.5 Pseudomonas (aeruginosa) (mallei) (pseudomallei) as the cause of diseases classified elsewhere; D64.9 Anemia, unspecified; E86.0 Dehydration; G89.29 Other chronic pain; R03.0 Elevated blood-pressure reading, without diagnosis of hypertension; R30.9 Painful micturition, unspecified; B96.89 Other specified bacterial agents as the cause of diseases classified elsewhere; E78.5 Hyperlipidemia, unspecified; G25.81 Restless legs syndrome; N40.0 Benign prostatic hyperplasia without lower urinary tract symptoms; Z93.3 Colostomy status; Z88.5 Allergy status to narcotic agent; Z79.899 Other long term (current) drug therapy; Z79.02 Long term (current) use of antithrombotics/antiplatelets; Z85.820 Personal history of malignant melanoma of skin; Z87.891 Personal history of nicotine dependence; Z80.42 Family history of malignant neoplasm of prostate
CPT/HCPCS: 36415; 71045; 74021; 80048; 80053; 81001; 82150; 83605; 83735; 83880; 85025; 87040; 87070; 87077; 87088; 87186; 93306; 96361; 96374; 96375; 97110; 97161; 97530; 99285; A6449; J0696; J0780; J1650; J2270; J2405; J2765; J3480; J3490; J7030

== ENCOUNTER 2019-01-11 20:05 | Inpatient (IN) | payer MEDICARE, MEDICAID ==
[~2019-01-11] VITALS: Ht 175.3 cm; Wt 100.0 kg
[~2019-01-11 20:05] MED LIST changes: -CELE-193 PO; -CLA10T PO; +CLON-529 PO; -CYCL-394 PO; +DOCU-28 PO; -ESCI5TAB PO; +FLO0.4C PO; -GABA-532 PO; -HYDR12.522 PO; +OXYC-150 PO; +PEG15DRO4 OP; -POTA10TA19 PO; +ROPI1TAB2 PO; +VITC500T PO
[2019-01-11] MEDS ORDERED: normal saline 1000ml 1,000 ML IV ONE (20:42)
[2019-01-11] MEDS ORDERED: diatr meglu/diatrizoate 30ml oral sol.-(3 dose) bottle PO SCH (20:45)
[2019-01-11] MEDS ORDERED: morphine 2 MG/ML inj. syringe IV PRN ×2 (20:45→23:30)
[2019-01-11] MEDS ORDERED: normal saline 1000ML IV soln IVB ONE (20:45)
[2019-01-11 21:10] LABS: BASOPHILS # (AUTO) 0.2 X10'3 (0-0.2); EOSINOPHILS # (AUTO) 0.1 X10'3 (0-0.9); EOSINOPHILS % (AUTO) 0.4 % (0-6); HEMATOCRIT 29.2 % (42.0-52.0); HEMOGLOBIN 8.4 g/dl (14.0-17.9); LYMPHOCYTES # (AUTO) 1.4 X10'3 (1.1-4.8); LYMPHOCYTES % (AUTO) 9.1 % (21-51); MEAN CORPUSCULAR HEMOGLOBIN 19.3 PG (27.0-31.0); MEAN CORPUSCULAR HGB CONC 28.8 g/dL (33.0-36.5); MEAN PLATELET VOLUME 8.2 FL (7.4-10.4); MONOCYTES # (AUTO) 0.7 X10'3 (0-0.9); MONOCYTES % (AUTO) 4.6 % (2-12); NEUTROPHILS # (AUTO) 13.5 X10'3 (1.8-7.7); NEUTROPHILS % (AUTO) 84.9 % (42-75); PLATELET COUNT 331 X10'3 (140-440); RED BLOOD COUNT 4.36 X10'6 (4.70-6.10); RED CELL DISTRIBUTION WIDTH 19.7 % (11.5-14.5); WHITE BLOOD COUNT 15.9 X10'3 (4.5-11.0)
[2019-01-11 21:24] LABS: ALANINE AMINOTRANSFERASE 35 U/L (12-78); ALBUMIN 3.5 G/DL (3.4-5.0); ALBUMIN/GLOBULIN RATIO 0.6 (1.1-1.5); ALKALINE PHOSPHATASE 184 IU/L (46-116); ANION GAP 11 (8-16); ASPARTATE AMINO TRANSFERASE 24 U/L (10-37); BILIRUBIN,TOTAL 0.2 MG/DL (0.1-1.0); BLOOD UREA NITROGEN 12 MG/DL (7-18); BUN/CREATININE RATIO 10.2 (5.4-32.0); CALCIUM 8.5 MG/DL (8.5-10.1); CHLORIDE 100 MMOL/L (99-107); CREATININE 1.18 MG/DL (0.60-1.10); GLUCOSE 129 MG/DL (70-104); POTASSIUM 3.9 MMOL/L (3.5-5.1); SODIUM 139 MMOL/L (135-145); TOTAL CARBON DIOXIDE 28.5 MMOL/L (24-32); eGFR 61 ML/MIN
[2019-01-11 21:25] LABS: PARTIAL THROMBOPLASTIN TIME 31 SECONDS (22-32)
[2019-01-11 21:29] LABS: LIPASE 188 U/L (73-393)
[2019-01-11 21:30] LABS: PLATELET ESTIMATE NORMAL
[2019-01-11 21:31] LABS: ANISOCYTOSIS 2+; ELLIPTOCYTES FEW; HYPOCHROMASIA 1+; LARGE PLATELETS FEW; MICROCYTOSIS 2+; POLYCHROMASIA FEW
[2019-01-11] MEDS ORDERED: LIDOcaine Viscous 15ml cup MM PRN (22:20)
[2019-01-11 22:57] LABS: CLARITY,URINE CLEAR (Clear); COLOR,URINE YELLOW (Yellow); GLUCOSE, URINE NEGATIVE (Neg); KETONES,URINE NEGATIVE (Neg); LEUKOCYTE ESTERASE ,URINE MODERATE (Neg); NITRITES, URINE NEGATIVE (Neg); OCCULT BLOOD,URINE NEGATIVE (Neg); PROTEIN,URINE TRACE mg/dl (Neg); UROBILINOGEN,URINE 0.2 E.U/dL (0.2-1.0)
[2019-01-11 23:03] LABS: UA COLLECTION TYPE NON-SPECIFIED
[2019-01-11 23:04] LABS: BACTERIA,URINE FEW /HPF (Neg); RBC,URINE NONE SEEN /HPF (0-2); SQUAMOUS EPITHELIAL CELL,UR FEW /LPF (FEW)
[2019-01-11] MEDS ORDERED: CefTRIAXone/D5W-Rocephin 1gm 50 ML IV ONE (23:20)
[2019-01-11] MEDS ORDERED: potassium Cl 20 mEq SR tablet PO PRN (23:30)
[2019-01-11] MEDS ORDERED: potassium CL 10mEq/100ml bag 100 ML IV PRN ×2 (23:30)
[2019-01-11] MEDS ORDERED: magnesium 4gm in 100ml NS 100 ML IV PRN (23:30)
[2019-01-11] MEDS ORDERED: magnesium Cl slow-release 64mg tablet PO PRN (23:30)
[2019-01-11] MEDS ORDERED: magnesium 2GM in 50ml NS 50 ML IV PRN (23:30)
[2019-01-11] MEDS: normal saline 1000ml 1,000 ML IV SCH (23:30)
[2019-01-12] MEDS ORDERED: FAMO-128 PO (00:07)
[2019-01-12] MEDS ORDERED: MELA3TAB64 PO (00:07)
[2019-01-12] MEDS ORDERED: LORA10TA7 PO (00:07)
[2019-01-12] MEDS ORDERED: ATOR20TA PO (00:07)
[2019-01-12] MEDS ORDERED: MULT-933 PO (00:07)
[2019-01-12] MEDS ORDERED: CITA-311 PO (00:07)
[2019-01-12] MEDS ORDERED: BENZ9.352 (00:07)
[2019-01-12] MEDS ORDERED: FURO40TA4 PO (00:07)
[2019-01-12] MEDS ORDERED: CYCL-394 PO (00:07)
[2019-01-12] MEDS ORDERED: ASCO500C15 PO (00:07)
[2019-01-12] MEDS ORDERED: MAGN400O6 PO (00:07)
[2019-01-12] MEDS ORDERED: CLON-529 PO (00:07)
[2019-01-12] MEDS ORDERED: POTA20TA10 PO (00:07)
[2019-01-12] MEDS ORDERED: MYL80T PO (00:07)
[2019-01-12] MEDS ORDERED: EUCA1LOZ37 (00:07)
[2019-01-12] MEDS ORDERED: GABA-530 PO (00:07)
[2019-01-12] MEDS ORDERED: TETR15DR85 (00:07)
[2019-01-12] MEDS ORDERED: APIX5TAB3 PO (00:07)
[2019-01-12] MEDS ORDERED: MAG355OR18 PO (00:07)
[2019-01-12] MEDS ORDERED: BISA10SU60 RC (00:07)
[2019-01-12] MEDS: diatr meglu/diatrizoate 30ml oral sol.-(3 dose) bottle PO SCH ×3 (00:18→06:39)
[2019-01-12 01:00] VITALS: BP 164/76
[2019-01-12 06:00] VITALS: BP 167/92
[2019-01-12] MEDS: normal saline 1000ml 1,000 ML IV SCH ×3 (06:45→23:25)
--- NOTE | 2019-01-12 06:45 | NUR ---
Last dose of Gastrograffin given per protocol for CT scheduled today. Paged CT to notify that pt has received 3 doses and is ready for CT Scan.
[2019-01-12 07:12] LABS: BASOPHILS # (AUTO) 0.1 X10'3 (0-0.2); BASOPHILS % (AUTO) 1.1 % (0-1); EOSINOPHILS # (AUTO) 0.2 X10'3 (0-0.9); EOSINOPHILS % (AUTO) 1.6 % (0-6); HEMATOCRIT 25.6 % (42.0-52.0); HEMOGLOBIN 7.6 g/dl (14.0-17.9); LYMPHOCYTES # (AUTO) 2.1 X10'3 (1.1-4.8); LYMPHOCYTES % (AUTO) 19.8 % (21-51); MEAN CORPUSCULAR HGB CONC 29.9 g/dL (33.0-36.5); MEAN PLATELET VOLUME 8.4 FL (7.4-10.4); MONOCYTES # (AUTO) 0.8 X10'3 (0-0.9); MONOCYTES % (AUTO) 7.4 % (2-12); NEUTROPHILS # (AUTO) 7.3 X10'3 (1.8-7.7); NEUTROPHILS % (AUTO) 70.1 % (42-75); PLATELET COUNT 280 X10'3 (140-440); RED BLOOD COUNT 3.82 X10'6 (4.70-6.10); RED CELL DISTRIBUTION WIDTH 19.7 % (11.5-14.5); WHITE BLOOD COUNT 10.4 X10'3 (4.5-11.0)
[2019-01-12] MEDS ORDERED: iohexol 300mg/ml 100ml inj. ONE (07:14)
[2019-01-12 07:33] LABS: ANISOCYTOSIS 2+; HYPOCHROMASIA 2+; MICROCYTOSIS 2+; PLATELET ESTIMATE NORMAL; POLYCHROMASIA 2+
[2019-01-12 07:34] LABS: LARGE PLATELETS MODERATE; POIKILOCYTOSIS FEW
[2019-01-12] MEDS: K and/or MAG REPLACEMENT MC SCH (08:00)
[2019-01-12 08:11] LABS: ALBUMIN 3.1 G/DL (3.4-5.0); ANION GAP 10 (8-16); BLOOD UREA NITROGEN 11 MG/DL (7-18); BUN/CREATININE RATIO 11.7 (5.4-32.0); CALCIUM 8.2 MG/DL (8.5-10.1); CHLORIDE 106 MMOL/L (99-107); CREATININE 0.94 MG/DL (0.60-1.10); GLUCOSE 106 MG/DL (70-104); SODIUM 141 MMOL/L (135-145); TOTAL CARBON DIOXIDE 25.2 MMOL/L (24-32); eGFR 80 ML/MIN
[2019-01-12] MEDS: pantoprazole 40 MG vial IV SCH (08:31)
[2019-01-12] MEDS: CefTRIAXone/D5W-Rocephin 1gm 50 ML IV SCH (08:31)
[2019-01-12 10:00] VITALS: BP 157/75
--- NOTE | 2019-01-12 15:45 | NUR ---
Went to pts bedside to give him medications as ordered by MD. Pt has slept all day, and did not eat his clear liquid diet despite being awakened x3. At this time, pt stated "I want my Percocet." Informed pt that the medications I was about to give him, one of them was Flexeril. I explained the use of Flexeril to the patient again a second time. Informed pt that he has not informed me during multiple visits into his room throughout the day, that he was in pain. Pt responded "I broke my neck and I take Percocet three times a day." Informed pt that the Flexeril will help with his pain, but I would contact the MD. Page sent to Dr. Ac notifying him that pt has not complained about pain all day, and has slept all day long, but is requesting Percocet 3x/day as he receives at [facility]. Will continue to monitor pt.
[2019-01-12] MEDS: mag hydrox/Alum hydrox/simeth 30ml oral suspension PO SCH ×3 (15:46→23:24)
[2019-01-12] MEDS: cyclobenzaprine 10mg tablet PO SCH ×2 (15:46→23:24)
[2019-01-12 18:00] VITALS: BP 160/72
--- NOTE | 2019-01-12 18:30 | NUR ---
Problems reprioritized. Patient report given, questions answered & plan of care reviewed with Antonette/Berenice VICENTE.
[2019-01-12] MEDS: magnesium hydroxide 30ml (MOM) UD suspension PO SCH (20:00)
[2019-01-12] MEDS: docusate sod 100mg capsule PO SCH (20:00)
[2019-01-12] MEDS: ROPINIRole 1mg tablet PO SCH (20:20)
[2019-01-12] MEDS: ascorbic acid 500mg tablet PO SCH (20:20)
[2019-01-12] MEDS: cloNIDine 0.1 mg tablet PO SCH (20:20)
[2019-01-12] MEDS: apixaban 5mg tablet PO SCH (20:21)
[2019-01-12] MEDS: lactobacillus rhamnosus 10,000 MMU CELLS/CAPSULE PO SCH (20:21)
[2019-01-12] MEDS: tamsulosin 0.4mg capsule PO SCH (20:21)
[2019-01-12] MEDS: gabapentin 100mg capsule PO SCH (20:21)
[2019-01-12] MEDS: simethicone 80mg chew tab PO SCH (20:22)
[2019-01-12 22:00] VITALS: BP 170/75
[2019-01-13] MEDS: mag hydrox/Alum hydrox/simeth 30ml oral suspension PO SCH ×6 (04:13→23:40)
[2019-01-13 06:00] VITALS: BP 167/85
[2019-01-13 06:06] LABS: BASOPHILS # (AUTO) 0.1 X10'3 (0-0.2); EOSINOPHILS % (AUTO) 0 % (0-6); HEMOGLOBIN 7.9 g/dl (14.0-17.9); LYMPHOCYTES # (AUTO) 1.1 X10'3 (1.1-4.8); LYMPHOCYTES % (AUTO) 10.7 % (21-51); MEAN CORPUSCULAR HEMOGLOBIN 19.8 PG (27.0-31.0); MEAN CORPUSCULAR HGB CONC 29.1 g/dL (33.0-36.5); MEAN PLATELET VOLUME 8.5 FL (7.4-10.4); MONOCYTES # (AUTO) 0.5 X10'3 (0-0.9); MONOCYTES % (AUTO) 4.5 % (2-12); NEUTROPHILS # (AUTO) 8.7 X10'3 (1.8-7.7); NEUTROPHILS % (AUTO) 83.8 % (42-75); PLATELET COUNT 284 X10'3 (140-440); RED BLOOD COUNT 3.97 X10'6 (4.70-6.10); RED CELL DISTRIBUTION WIDTH 19.7 % (11.5-14.5); WHITE BLOOD COUNT 10.3 X10'3 (4.5-11.0)
[2019-01-13 06:16] LABS: ALBUMIN 3.2 G/DL (3.4-5.0); ANION GAP 12 (8-16); BLOOD UREA NITROGEN 10 MG/DL (7-18); BUN/CREATININE RATIO 11.9 (5.4-32.0); CALCIUM 8.1 MG/DL (8.5-10.1); CHLORIDE 108 MMOL/L (99-107); CREATININE 0.84 MG/DL (0.60-1.10); GLUCOSE 135 MG/DL (70-104); MAGNESIUM 2.1 MG/DL (1.5-2.4); POTASSIUM 3.4 MMOL/L (3.5-5.1); SODIUM 144 MMOL/L (135-145); TOTAL CARBON DIOXIDE 24.4 MMOL/L (24-32); eGFR > 90 ML/MIN
[2019-01-13] MEDS: ondansetron/PF 4mg/2ml inj IV PRN (06:18)
[2019-01-13 07:02] LABS: ANISOCYTOSIS 2+; LARGE PLATELETS FEW; MICROCYTOSIS 2+; PLATELET ESTIMATE NORMAL
[2019-01-13 07:03] LABS: HYPOCHROMASIA 2+
[2019-01-13] MEDS: K and/or MAG REPLACEMENT MC SCH (07:53)
[2019-01-13] MEDS: CefTRIAXone/D5W-Rocephin 1gm 50 ML IV SCH (07:56)
[2019-01-13] MEDS: pantoprazole 40 MG vial IV SCH (07:56)
[2019-01-13] MEDS: atorvastatin 20mg tablet PO SCH (07:57)
[2019-01-13] MEDS: apixaban 5mg tablet PO SCH ×2 (07:57→20:52)
[2019-01-13] MEDS: CITALOpram 10mg tablet PO SCH (07:57)
[2019-01-13] MEDS: magnesium hydroxide 30ml (MOM) UD suspension PO SCH ×3 (07:57→20:00)
[2019-01-13] MEDS: docusate sod 100mg capsule PO SCH ×2 (07:57→20:52)
[2019-01-13] MEDS: loratadine 10mg tablet PO SCH (07:57)
[2019-01-13] MEDS: cyclobenzaprine 10mg tablet PO SCH ×3 (07:57→23:40)
[2019-01-13] MEDS: bisacodyl 10mg suppository rectal RC SCH (07:57)
[2019-01-13] MEDS: lactobacillus rhamnosus 10,000 MMU CELLS/CAPSULE PO SCH ×2 (07:57→20:52)
[2019-01-13] MEDS: cloNIDine 0.1 mg tablet PO SCH ×3 (07:57→20:52)
[2019-01-13] MEDS: furosemide 40mg tablet PO SCH (07:58)
[2019-01-13] MEDS: gabapentin 100mg capsule PO SCH ×3 (07:58→20:53)
[2019-01-13] MEDS: potassium Cl 20 mEq SR tablet PO SCH (07:58)
[2019-01-13] MEDS: tamsulosin 0.4mg capsule PO SCH ×2 (07:58→20:52)
[2019-01-13] MEDS: multivitamins, therapeutics tablet PO SCH (08:00)
[2019-01-13] MEDS: ascorbic acid 500mg tablet PO SCH ×2 (08:00→20:52)
[2019-01-13] MEDS ORDERED: metoclopramide 5 mg/ml inj IV PRN (08:55)
[2019-01-13 10:00] VITALS: BP 148/73
[2019-01-13] MEDS: normal saline 1000ml 1,000 ML IV SCH ×2 (11:44→21:01)
[2019-01-13] MEDS: potassium Cl 20 mEq SR tablet PO PRN ×2 (11:45→16:34)
[2019-01-13] MEDS: metoclopramide 5 mg/ml inj IV SCH ×2 (11:45→16:34)
--- NOTE | 2019-01-13 12:13 | NUR ---
PAGER ID: [phone] MESSAGE: TOBIN [id number] RE: [facility] FYJerry GRAM NEG RODS IN URINE.
[2019-01-13 13:33] VITALS: BP 148/74
[2019-01-13 18:00] VITALS: BP 136/69
--- NOTE | 2019-01-13 18:00 | NUR ---
Problems reprioritized. Patient report given, questions answered & plan of care reviewed with TERRENCE VICENTE.
[2019-01-13] MEDS: ROPINIRole 1mg tablet PO SCH (20:52)
[2019-01-13] MEDS: simethicone 80mg chew tab PO SCH (20:53)
[2019-01-13 22:00] VITALS: BP 153/75
[2019-01-14] MEDS: mag hydrox/Alum hydrox/simeth 30ml oral suspension PO SCH ×5 (04:00→20:00)
[2019-01-14 06:24] LABS: BASOPHILS # (AUTO) 0.1 X10'3 (0-0.2); BASOPHILS % (AUTO) 0.9 % (0-1); EOSINOPHILS # (AUTO) 0.1 X10'3 (0-0.9); EOSINOPHILS % (AUTO) 0.9 % (0-6); HEMATOCRIT 24.8 % (42.0-52.0); HEMOGLOBIN 7.1 g/dl (14.0-17.9); LYMPHOCYTES # (AUTO) 2.1 X10'3 (1.1-4.8); LYMPHOCYTES % (AUTO) 16.4 % (21-51); MEAN CORPUSCULAR HEMOGLOBIN 19.5 PG (27.0-31.0); MEAN CORPUSCULAR HGB CONC 28.6 g/dL (33.0-36.5); MEAN CORPUSCULAR VOLUME 68.1 FL (78-98); MEAN PLATELET VOLUME 8.5 FL (7.4-10.4); MONOCYTES # (AUTO) 0.9 X10'3 (0-0.9); MONOCYTES % (AUTO) 7.4 % (2-12); NEUTROPHILS # (AUTO) 9.5 X10'3 (1.8-7.7); NEUTROPHILS % (AUTO) 74.4 % (42-75); PLATELET COUNT 271 X10'3 (140-440); RED BLOOD COUNT 3.65 X10'6 (4.70-6.10); RED CELL DISTRIBUTION WIDTH 19.5 % (11.5-14.5); WHITE BLOOD COUNT 12.8 X10'3 (4.5-11.0)
[2019-01-14 06:29] LABS: ALBUMIN 2.9 G/DL (3.4-5.0); ANION GAP 9 (8-16); BLOOD UREA NITROGEN 9 MG/DL (7-18); BUN/CREATININE RATIO 10.3 (5.4-32.0); CALCIUM 7.9 MG/DL (8.5-10.1); CHLORIDE 110 MMOL/L (99-107); CREATININE 0.87 MG/DL (0.60-1.10); GLUCOSE 107 MG/DL (70-104); MAGNESIUM 2.3 MG/DL (1.5-2.4); POTASSIUM 3.9 MMOL/L (3.5-5.1); SODIUM 143 MMOL/L (135-145); TOTAL CARBON DIOXIDE 24.3 MMOL/L (24-32); eGFR 87 ML/MIN
[2019-01-14 07:12] LABS: ANISOCYTOSIS 2+; LARGE PLATELETS FEW; MICROCYTOSIS 2+; PLATELET ESTIMATE NORMAL; POLYCHROMASIA 1+
[2019-01-14] MEDS: apixaban 5mg tablet PO SCH ×2 (08:00→21:15)
[2019-01-14] MEDS: cyclobenzaprine 10mg tablet PO SCH ×2 (08:00→15:35)
[2019-01-14] MEDS: K and/or MAG REPLACEMENT MC SCH (08:00)
[2019-01-14] MEDS: bisacodyl 10mg suppository rectal RC SCH (08:00)
[2019-01-14] MEDS: atorvastatin 20mg tablet PO SCH (08:00)
[2019-01-14] MEDS: docusate sod 100mg capsule PO SCH ×2 (08:00→20:00)
[2019-01-14] MEDS: CefTRIAXone/D5W-Rocephin 1gm 50 ML IV SCH (08:00)
[2019-01-14] MEDS: magnesium hydroxide 30ml (MOM) UD suspension PO SCH ×3 (08:00→20:00)
[2019-01-14] MEDS: tamsulosin 0.4mg capsule PO SCH ×2 (08:01→21:16)
[2019-01-14] MEDS: gabapentin 100mg capsule PO SCH ×3 (08:01→21:17)
[2019-01-14] MEDS: furosemide 40mg tablet PO SCH (08:01)
[2019-01-14] MEDS: ascorbic acid 500mg tablet PO SCH ×2 (08:01→20:00)
[2019-01-14] MEDS: potassium Cl 20 mEq SR tablet PO SCH (08:01)
[2019-01-14] MEDS: lactobacillus rhamnosus 10,000 MMU CELLS/CAPSULE PO SCH ×2 (08:01→21:16)
[2019-01-14] MEDS: metoclopramide 5 mg/ml inj IV SCH ×3 (08:01→17:35)
[2019-01-14] MEDS: loratadine 10mg tablet PO SCH (08:01)
[2019-01-14] MEDS: cloNIDine 0.1 mg tablet PO SCH ×3 (08:01→21:16)
[2019-01-14] MEDS: multivitamins, therapeutics tablet PO SCH (08:01)
[2019-01-14] MEDS: pantoprazole 40 MG vial IV SCH (08:01)
[2019-01-14] MEDS: CITALOpram 10mg tablet PO SCH (08:02)
[2019-01-14 10:50] VITALS: BP 158/79
[2019-01-14] MEDS: normal saline 1000ml 1,000 ML IV SCH ×2 (11:39→21:30)
[2019-01-14 18:00] VITALS: BP 160/79
[2019-01-14] MEDS: simethicone 80mg chew tab PO SCH (21:16)
[2019-01-14] MEDS: ROPINIRole 1mg tablet PO SCH (21:17)
[2019-01-14 22:00] VITALS: BP 176/92
[2019-01-15] MEDS: mag hydrox/Alum hydrox/simeth 30ml oral suspension PO SCH
[2019-01-15] MEDS: cyclobenzaprine 10mg tablet PO SCH
[2019-01-15] MEDS ORDERED: mag hydrox/Alum hydrox/simeth 30ml oral suspension PO PRN (00:20)
[2019-01-15] MEDS ORDERED: cyclobenzaprine 10mg tablet PO PRN (00:20)
[2019-01-15] MEDS: ondansetron/PF 4mg/2ml inj IV PRN (01:11)
[2019-01-15] MEDS: normal saline 1000ml 1,000 ML IV SCH ×2 (03:44→17:39)
[2019-01-15 05:43] LABS: BASOPHILS # (AUTO) 0.1 X10'3 (0-0.2); BASOPHILS % (AUTO) 0.8 % (0-1); EOSINOPHILS # (AUTO) 0.2 X10'3 (0-0.9); EOSINOPHILS % (AUTO) 1.9 % (0-6); HEMOGLOBIN 7.5 g/dl (14.0-17.9); LYMPHOCYTES # (AUTO) 1.8 X10'3 (1.1-4.8); LYMPHOCYTES % (AUTO) 15.3 % (21-51); MEAN CORPUSCULAR HEMOGLOBIN 19.2 PG (27.0-31.0); MEAN CORPUSCULAR HGB CONC 28.7 g/dL (33.0-36.5); MEAN CORPUSCULAR VOLUME 66.9 FL (78-98); MEAN PLATELET VOLUME 8.6 FL (7.4-10.4); MONOCYTES # (AUTO) 0.8 X10'3 (0-0.9); MONOCYTES % (AUTO) 6.7 % (2-12); NEUTROPHILS # (AUTO) 8.8 X10'3 (1.8-7.7); NEUTROPHILS % (AUTO) 75.3 % (42-75); PLATELET COUNT 282 X10'3 (140-440); RED BLOOD COUNT 3.89 X10'6 (4.70-6.10); RED CELL DISTRIBUTION WIDTH 19.6 % (11.5-14.5); WHITE BLOOD COUNT 11.6 X10'3 (4.5-11.0)
[2019-01-15 06:14] LABS: ALBUMIN 3.1 G/DL (3.4-5.0); ANION GAP 10 (8-16); BLOOD UREA NITROGEN 6 MG/DL (7-18); CALCIUM 8.1 MG/DL (8.5-10.1); CHLORIDE 108 MMOL/L (99-107); CREATININE 0.75 MG/DL (0.60-1.10); GLUCOSE 109 MG/DL (70-104); MAGNESIUM 2.1 MG/DL (1.5-2.4); POTASSIUM 3.6 MMOL/L (3.5-5.1); SODIUM 140 MMOL/L (135-145); TOTAL CARBON DIOXIDE 22.3 MMOL/L (24-32); eGFR > 90 ML/MIN
--- NOTE | 2019-01-15 06:42 | NUR ---
reported to days. noted pt resting with eyes closed. no more emesis or BM's this am.
[2019-01-15] MEDS: magnesium hydroxide 30ml (MOM) UD suspension PO SCH ×3 (08:00→20:00)
[2019-01-15] MEDS: bisacodyl 10mg suppository rectal RC SCH (08:00)
[2019-01-15] MEDS: docusate sod 100mg capsule PO SCH ×2 (08:00→20:00)
[2019-01-15] MEDS: K and/or MAG REPLACEMENT MC SCH (08:02)
[2019-01-15] MEDS: metoclopramide 5 mg/ml inj IV SCH ×3 (08:02→18:31)
[2019-01-15] MEDS: CefTRIAXone/D5W-Rocephin 1gm 50 ML IV SCH (08:10)
[2019-01-15] MEDS: loratadine 10mg tablet PO SCH (08:13)
[2019-01-15] MEDS: gabapentin 100mg capsule PO SCH ×3 (08:14→21:03)
[2019-01-15] MEDS: multivitamins, therapeutics tablet PO SCH (08:14)
[2019-01-15] MEDS: atorvastatin 20mg tablet PO SCH (08:14)
[2019-01-15] MEDS: lactobacillus rhamnosus 10,000 MMU CELLS/CAPSULE PO SCH ×2 (08:14→21:01)
[2019-01-15] MEDS: cloNIDine 0.1 mg tablet PO SCH ×3 (08:14→21:03)
[2019-01-15] MEDS: furosemide 40mg tablet PO SCH (08:14)
[2019-01-15] MEDS: apixaban 5mg tablet PO SCH ×2 (08:14→21:02)
[2019-01-15] MEDS: CITALOpram 10mg tablet PO SCH (08:14)
[2019-01-15] MEDS: ascorbic acid 500mg tablet PO SCH ×2 (08:15→21:02)
[2019-01-15] MEDS: pantoprazole 40 MG vial IV SCH (08:15)
[2019-01-15] MEDS: tamsulosin 0.4mg capsule PO SCH ×2 (08:15→21:02)
[2019-01-15] MEDS: potassium Cl 20 mEq SR tablet PO SCH (08:15)
[2019-01-15 08:23] VITALS: BP 152/80
[2019-01-15 08:48] LABS: ANISOCYTOSIS 2+; LARGE PLATELETS FEW; MICROCYTOSIS 2+; PLATELET ESTIMATE NORMAL
[2019-01-15 08:49] LABS: HYPOCHROMASIA 1+
[2019-01-15 10:00] VITALS: BP 148/76
[2019-01-15] MEDS ORDERED: CEFD300C3 PO (13:23)
[2019-01-15 13:30] VITALS: BP 147/78
--- NOTE | 2019-01-15 15:09 | NUR ---
Initial: Pt admit w/ concerns for bowel obstruction from [facility]; CT shows no obstruction. Pt receiving promotility agent in addition to multiple bowel care meds having regular moderate stools. PO fluctuates w/ 50-75% avg meals up to 100% majority of meals since admit meeting needs. LBM 01/15. Receiving MVI and potassium on lasix. Will continue to monitor. Rec: 1. continue mechanical soft diet per MD 2. routine bowel care 3. wt per rx Addendum: 01/15/19 at [address] Amended: Links added.
[2019-01-15 18:00] VITALS: BP 150/78
[2019-01-15] MEDS: ROPINIRole 1mg tablet PO SCH (21:03)
[2019-01-15] MEDS: simethicone 80mg chew tab PO SCH (21:03)
[2019-01-15 22:00] VITALS: BP 157/75
[2019-01-16] MEDS: normal saline 1000ml 1,000 ML IV SCH (01:50)
[2019-01-16 06:00] VITALS: BP 173/86
[2019-01-16 06:03] LABS: BASOPHILS # (AUTO) 0.1 X10'3 (0-0.2); BASOPHILS % (AUTO) 0.7 % (0-1); EOSINOPHILS # (AUTO) 0.3 X10'3 (0-0.9); EOSINOPHILS % (AUTO) 2.3 % (0-6); HEMATOCRIT 26.7 % (42.0-52.0); HEMOGLOBIN 7.7 g/dl (14.0-17.9); LYMPHOCYTES # (AUTO) 1.4 X10'3 (1.1-4.8); LYMPHOCYTES % (AUTO) 10.9 % (21-51); MEAN CORPUSCULAR HEMOGLOBIN 19.3 PG (27.0-31.0); MEAN CORPUSCULAR HGB CONC 28.7 g/dL (33.0-36.5); MEAN CORPUSCULAR VOLUME 67.3 FL (78-98); MEAN PLATELET VOLUME 8.7 FL (7.4-10.4); MONOCYTES # (AUTO) 0.8 X10'3 (0-0.9); MONOCYTES % (AUTO) 6.3 % (2-12); NEUTROPHILS # (AUTO) 10.3 X10'3 (1.8-7.7); NEUTROPHILS % (AUTO) 79.8 % (42-75); PLATELET COUNT 281 X10'3 (140-440); RED BLOOD COUNT 3.98 X10'6 (4.70-6.10); RED CELL DISTRIBUTION WIDTH 19.7 % (11.5-14.5); WHITE BLOOD COUNT 12.9 X10'3 (4.5-11.0)
--- NOTE | 2019-01-16 06:10 | NUR ---
Patient in room ORTHO 4017. I have received report from ARIELA VICENTE and had the opportunity to ask questions and assume patient care.
[2019-01-16 06:34] LABS: ALBUMIN 3.2 G/DL (3.4-5.0); ANION GAP 11 (8-16); BLOOD UREA NITROGEN 7 MG/DL (7-18); CALCIUM 7.9 MG/DL (8.5-10.1); CHLORIDE 107 MMOL/L (99-107); CREATININE 0.78 MG/DL (0.60-1.10); GLUCOSE 103 MG/DL (70-104); POTASSIUM 3.3 MMOL/L (3.5-5.1); SODIUM 141 MMOL/L (135-145); TOTAL CARBON DIOXIDE 22.6 MMOL/L (24-32); eGFR > 90 ML/MIN
[2019-01-16 07:08] LABS: ANISOCYTOSIS 2+; HYPOCHROMASIA 1+; LARGE PLATELETS FEW; MICROCYTOSIS 2+; PLATELET ESTIMATE NORMAL
[2019-01-16 07:09] LABS: POLYCHROMASIA 1+
[2019-01-16] MEDS: metoclopramide 5 mg/ml inj IV SCH ×2 (07:28→12:29)
[2019-01-16] MEDS: CefTRIAXone/D5W-Rocephin 1gm 50 ML IV SCH (07:29)
[2019-01-16] MEDS ORDERED: pantoprazole 40mg Tablet.DR PO SCH (07:30)
[2019-01-16] MEDS: K and/or MAG REPLACEMENT MC SCH (07:30)
[2019-01-16] MEDS: cloNIDine 0.1 mg tablet PO SCH ×2 (07:30→12:29)
[2019-01-16] MEDS: loratadine 10mg tablet PO SCH (07:31)
[2019-01-16] MEDS: docusate sod 100mg capsule PO SCH (07:31)
[2019-01-16] MEDS: CITALOpram 10mg tablet PO SCH (07:31)
[2019-01-16] MEDS: potassium Cl 20 mEq SR tablet PO SCH (07:32)
[2019-01-16] MEDS: apixaban 5mg tablet PO SCH (07:32)
[2019-01-16] MEDS: furosemide 40mg tablet PO SCH (07:32)
[2019-01-16] MEDS: lactobacillus rhamnosus 10,000 MMU CELLS/CAPSULE PO SCH (07:32)
[2019-01-16] MEDS: tamsulosin 0.4mg capsule PO SCH (07:32)
[2019-01-16] MEDS: atorvastatin 20mg tablet PO SCH (07:32)
[2019-01-16] MEDS: magnesium hydroxide 30ml (MOM) UD suspension PO SCH ×2 (07:33)
[2019-01-16] MEDS: ascorbic acid 500mg tablet PO SCH (07:34)
[2019-01-16] MEDS: multivitamins, therapeutics tablet PO SCH (07:34)
[2019-01-16] MEDS: bisacodyl 10mg suppository rectal RC SCH (07:34)
[2019-01-16] MEDS: gabapentin 100mg capsule PO SCH ×2 (07:34→12:30)
--- NOTE | 2019-01-16 15:00 | NUR ---
PATIENT DC TO [facility] WILL ALL BELONGINGS IN POSSESSION.
== END 2019-01-16 14:55 | DRG 389 ==
LOC: ER 20:06 → ORTHO 4S 01-12 01:20
PROVIDERS: ADMIT Internal Medicine; ATTEND Family Medicine
PROC: BW211ZZ Computerized Tomography (CT Scan) of Abdomen and Pelvis using Low Osmolar Contrast (ICD-10-PCS; principal; 2019-01-12)
PROC: 0D9670Z Drainage of Stomach with Drainage Device, Via Natural or Artificial Opening (ICD-10-PCS; 2019-01-12)
DX: K56.609 Unspecified intestinal obstruction, unspecified as to partial versus complete obstruction (principal); I69.354 Hemiplegia and hemiparesis following cerebral infarction affecting left non-dominant side; N39.0 Urinary tract infection, site not specified; Z60.2 Problems related to living alone; B96.5 Pseudomonas (aeruginosa) (mallei) (pseudomallei) as the cause of diseases classified elsewhere; E78.5 Hyperlipidemia, unspecified; G25.81 Restless legs syndrome; G89.29 Other chronic pain; I10 Essential (primary) hypertension; F32.9 Major depressive disorder, single episode, unspecified; K56.41 Fecal impaction; N40.0 Benign prostatic hyperplasia without lower urinary tract symptoms; Z85.820 Personal history of malignant melanoma of skin; Z90.49 Acquired absence of other specified parts of digestive tract; Z93.3 Colostomy status; Z79.899 Other long term (current) drug therapy; Z79.01 Long term (current) use of anticoagulants
CPT/HCPCS: 36415; 71045; 74018; 74177; 80048; 80053; 81001; 83605; 83690; 83735; 84484; 85025; 85610; 85730; 87040; 87077; 87081; 87088; 87186; 93005; 96361; 96374; 97110; 97116; 97161; 97530; 99285; C9113; G0378; J0696; J2270; J2405; J2765; J7030; Q9963; Q9967